=== PATIENT | male | born 1945 | race Two or more races ===

== ENCOUNTER 2018-01-24 15:59 | Emergency (ER) | payer MEDICARE, MEDICAID ==
[~2018-01-24] VITALS: Ht 172.7 cm; Wt 72.0 kg
[2018-01-24] MEDS ORDERED: CIPR10DR LEFT EAR (16:17)
[2018-01-24 16:26] VITALS: BP 117/65
[2018-01-25] MEDS ORDERED: [UNRECOGNIZED DRUG - OTHER] PO (15:32)
== END 2018-01-24 16:25 | disposition home or self-care (01) ==
LOC: ER 15:59
DX: H60.92 Unspecified otitis externa, left ear (principal); I50.9 Heart failure, unspecified
CPT/HCPCS: 99283

== ENCOUNTER 2018-01-25 14:44 | Emergency (ER) | payer MEDICARE, MEDICAID ==
[~2018-01-25] VITALS: Ht 172.7 cm; Wt 77.0 kg
[~2018-01-25 14:44] MED LIST: CIPR10DR LEFT EAR
[2018-01-25] MEDS ORDERED: [UNRECOGNIZED DRUG - OTHER] PO (15:32)
[2018-01-25 15:43] VITALS: BP 114/64
== END 2018-01-25 15:44 | disposition home or self-care (01) ==
LOC: ER 14:46
DX: H60.92 Unspecified otitis externa, left ear (principal); I50.9 Heart failure, unspecified
CPT/HCPCS: 99284

== ENCOUNTER 2018-02-15 14:56 | Inpatient (IN) | payer MEDICARE, MEDICAID ==
[~2018-02-15] VITALS: Ht 165.1 cm; Wt 63.0 kg
[~2018-02-15 14:56] MED LIST changes: -CIPR10DR LEFT EAR; +[UNRECOGNIZED DRUG - OTHER] PO
[2018-02-15 15:27] LABS: BASOPHILS # (AUTO) 0.1 X10'3 (0-0.2); BASOPHILS % (AUTO) 0.9 % (0-1); EOSINOPHILS # (AUTO) 0.2 X10'3 (0-0.9); EOSINOPHILS % (AUTO) 2.2 % (0-6); HEMATOCRIT 39.4 % (42.0-52.0); HEMOGLOBIN 13.3 g/dl (14.0-17.9); LYMPHOCYTES # (AUTO) 1.9 X10'3 (1.1-4.8); LYMPHOCYTES % (AUTO) 22.3 % (21-51); MEAN CORPUSCULAR HEMOGLOBIN 31.2 PG (27.0-31.0); MEAN CORPUSCULAR HGB CONC 33.8 % (33.0-36.5); MEAN CORPUSCULAR VOLUME 92.2 FL (78-98); MEAN PLATELET VOLUME 9.8 FL (7.4-10.4); MONOCYTES # (AUTO) 0.7 X10'3 (0-0.9); MONOCYTES % (AUTO) 8.4 % (2-12); NEUTROPHILS # (AUTO) 5.6 X10'3 (1.8-7.7); NEUTROPHILS % (AUTO) 66.2 % (42-75); PLATELET COUNT 158 X10'3 (140-440); RED BLOOD COUNT 4.27 X10'6 (4.70-6.10); RED CELL DISTRIBUTION WIDTH 13.6 % (11.5-14.5); WHITE BLOOD COUNT 8.5 X10'3 (4.5-11.0)
[2018-02-15 15:37] LABS: INR 1.1 INR; PARTIAL THROMBOPLASTIN TIME 27 SECONDS (22-32); PROTHROMBIN TIME 11.2 SECONDS (9.0-12.0)
[2018-02-15 15:49] LABS: ALANINE AMINOTRANSFERASE 41 U/L (12-78); ALBUMIN 3.5 G/DL (3.4-5.0); ALBUMIN/GLOBULIN RATIO 0.9 (1.1-1.5); ALKALINE PHOSPHATASE 73 IU/L (46-116); ANION GAP 9 (8-16); ASPARTATE AMINO TRANSFERASE 45 U/L (10-37); BILIRUBIN,TOTAL 1.4 MG/DL (0.1-1.0); BLOOD UREA NITROGEN 31 MG/DL (7-18); BUN/CREATININE RATIO 20.4 (5.4-32.0); CALCIUM 9.4 MG/DL (8.5-10.1); CHLORIDE 98 MMOL/L (99-107); CREATININE 1.52 MG/DL (0.60-1.10); GLUCOSE 87 MG/DL (70-104); POTASSIUM 3.7 MMOL/L (3.5-5.1); SODIUM 138 MMOL/L (135-145); TOTAL CARBON DIOXIDE 30.6 MMOL/L (24-32); TOTAL PROTEIN 7.5 G/DL (6.4-8.2); eGFR 45 ML/MIN
[2018-02-15] MEDS ORDERED: morphine 4 MG/ML inj SYRINge IV PRN ×2 (17:55)
[2018-02-15] MEDS ORDERED: bisacodyl 10mg suppository rectal RC PRN (17:55)
[2018-02-15] MEDS ORDERED: magnesium 4gm in 100ml NS 100 ML IV PRN (17:55)
[2018-02-15] MEDS ORDERED: ondansetron/PF 4mg/2ml inj IV PRN (17:55)
[2018-02-15] MEDS ORDERED: acetaminophen 325mg tablet PO PRN (17:55)
[2018-02-15] MEDS ORDERED: magnesium Cl slow-release 64mg tablet PO PRN (17:55)
[2018-02-15] MEDS ORDERED: mag hydrox/Alum hydrox/simeth 30ml oral suspension PO PRN (17:55)
[2018-02-15] MEDS ORDERED: HYDROcodone/acetaminophen 5mg/325mg tablet PO PRN (17:55)
[2018-02-15] MEDS ORDERED: HYDROcodone/acetaminophen 10/325mg tab PO PRN (17:55)
[2018-02-15] MEDS ORDERED: magnesium hydroxide 30ml (MOM) UD suspension PO PRN (17:55)
[2018-02-15] MEDS ORDERED: potassium Cl 40MEQ/NS 500ml 500 ML IV PRN ×2 (17:55)
[2018-02-15] MEDS ORDERED: magnesium 2GM in 50ml NS 50 ML IV PRN (17:55)
[2018-02-15] MEDS ORDERED: potassium Cl 20 mEq SR tablet PO PRN ×2 (17:55)
[2018-02-15] MEDS ORDERED: SOTA80TA69 PO (18:02)
[2018-02-15] MEDS: aspirin 325mg tablet PO SCH (18:17)
[2018-02-15] MEDS: furosemide 40mg/4ml inj IV SCH ×2 (18:17→20:00)
[2018-02-15] MEDS: docusate sod 100mg capsule PO SCH (20:00)
[2018-02-15] MEDS ORDERED: sotalol 80mg tablet PO SCH (20:00)
[2018-02-15] MEDS: heparin, porcine 5000 units/ml vial SQ SCH (20:00)
[2018-02-15] MEDS: sotalol 80mg tablet PO SCH (20:00)
[2018-02-16 00:40] VITALS: BP 105/59
[2018-02-16 03:28] LABS: BASOPHILS % (AUTO) 0.8 % (0-1); EOSINOPHILS # (AUTO) 0.2 X10'3 (0-0.9); EOSINOPHILS % (AUTO) 3.2 % (0-6); HEMATOCRIT 36.5 % (42.0-52.0); HEMOGLOBIN 12.5 g/dl (14.0-17.9); LYMPHOCYTES # (AUTO) 1.2 X10'3 (1.1-4.8); LYMPHOCYTES % (AUTO) 19.2 % (21-51); MEAN CORPUSCULAR HEMOGLOBIN 31.4 PG (27.0-31.0); MEAN CORPUSCULAR HGB CONC 34.2 % (33.0-36.5); MEAN CORPUSCULAR VOLUME 91.8 FL (78-98); MEAN PLATELET VOLUME 9.4 FL (7.4-10.4); MONOCYTES # (AUTO) 0.6 X10'3 (0-0.9); NEUTROPHILS # (AUTO) 4.2 X10'3 (1.8-7.7); NEUTROPHILS % (AUTO) 66.8 % (42-75); PLATELET COUNT 142 X10'3 (140-440); RED BLOOD COUNT 3.98 X10'6 (4.70-6.10); RED CELL DISTRIBUTION WIDTH 14.3 % (11.5-14.5); WHITE BLOOD COUNT 6.3 X10'3 (4.5-11.0)
[2018-02-16 03:45] LABS: ALANINE AMINOTRANSFERASE 40 U/L (12-78); ALBUMIN 3.1 G/DL (3.4-5.0); ALBUMIN/GLOBULIN RATIO 0.8 (1.1-1.5); ALKALINE PHOSPHATASE 62 IU/L (46-116); ANION GAP 9 (8-16); ASPARTATE AMINO TRANSFERASE 38 U/L (10-37); BILIRUBIN,TOTAL 1.1 MG/DL (0.1-1.0); BLOOD UREA NITROGEN 32 MG/DL (7-18); CALCIUM 9.3 MG/DL (8.5-10.1); CHLORIDE 100 MMOL/L (99-107); CHOL/HDL RATIO 2.4 (0.00-4.99); CHOLESTEROL 141 MG/DL (0-200); GLUCOSE 102 MG/DL (70-104); HDL CHOLESTEROL 60 MG/DL (35-60); LDL CHOLESTEROL 71 MG/DL (50-100); POTASSIUM 3.9 MMOL/L (3.5-5.1); SODIUM 139 MMOL/L (135-145); TOTAL CARBON DIOXIDE 30.3 MMOL/L (24-32); TOTAL PROTEIN 6.8 G/DL (6.4-8.2); TRIGLYCERIDES 60 MG/DL (20-135); eGFR 43 ML/MIN
[2018-02-16 08:00] VITALS: BP 117/67
[2018-02-16] MEDS: furosemide 40mg/4ml inj IV SCH ×2 (08:00→19:40)
[2018-02-16] MEDS: docusate sod 100mg capsule PO SCH ×2 (08:00→19:39)
[2018-02-16] MEDS ORDERED: lisinopril 5mg tablet PO SCH (08:00)
[2018-02-16] MEDS: sotalol 80mg tablet PO SCH ×2 (08:00→19:41)
[2018-02-16] MEDS: heparin, porcine 5000 units/ml vial SQ SCH ×2 (08:00→19:41)
[2018-02-16] MEDS: K and/or MAG REPLACEMENT MC SCH (08:00)
[2018-02-16] MEDS: aspirin 325mg tablet PO SCH (08:30)
[2018-02-16 11:00] VITALS: BP 97/58
[2018-02-16] MEDS ORDERED: benzocaine/menthol oral lozeng 1 EACH BOX MM PRN (12:00)
[2018-02-16 20:00] VITALS: BP_SYST 102; BP_SYST 106; BP_SYST 108; BP_DIAS 53; BP_DIAS 54; BP_DIAS 57
[2018-02-16] MEDS ORDERED: tamsulosin 0.4mg capsule PO SCH (21:00)
[2018-02-17] VITALS: BP 104/63
[2018-02-17 06:19] LABS: ALANINE AMINOTRANSFERASE 41 U/L (12-78); ALBUMIN 3.4 G/DL (3.4-5.0); ALBUMIN/GLOBULIN RATIO 0.9 (1.1-1.5); ALKALINE PHOSPHATASE 66 IU/L (46-116); ANION GAP 8 (8-16); ASPARTATE AMINO TRANSFERASE 42 U/L (10-37); BILIRUBIN,TOTAL 1.4 MG/DL (0.1-1.0); BLOOD UREA NITROGEN 35 MG/DL (7-18); CALCIUM 9.5 MG/DL (8.5-10.1); CHLORIDE 99 MMOL/L (99-107); CREATININE 1.59 MG/DL (0.60-1.10); GLUCOSE 101 MG/DL (70-104); MAGNESIUM 2.1 MG/DL (1.5-2.4); POTASSIUM 3.9 MMOL/L (3.5-5.1); SODIUM 138 MMOL/L (135-145); TOTAL CARBON DIOXIDE 30.7 MMOL/L (24-32); TOTAL PROTEIN 7.2 G/DL (6.4-8.2); eGFR 43 ML/MIN
[2018-02-17 07:16] VITALS: BP 99/40
[2018-02-17] MEDS: K and/or MAG REPLACEMENT MC SCH (08:00)
[2018-02-17] MEDS: furosemide 40mg/4ml inj IV SCH (08:00)
[2018-02-17] MEDS: heparin, porcine 5000 units/ml vial SQ SCH (08:00)
[2018-02-17] MEDS: aspirin 325mg tablet PO SCH (09:35)
[2018-02-17] MEDS: docusate sod 100mg capsule PO SCH (09:35)
[2018-02-17] MEDS ORDERED: carvedilol 6.25mg tablet PO ONE (09:40)
[2018-02-17] MEDS ORDERED: LISI-600 PO (10:37)
[2018-02-17] MEDS ORDERED: CARV-50 PO (10:37)
[2018-02-17] MEDS ORDERED: DIGO125T78 PO (10:37)
[2018-02-17] MEDS ORDERED: SACU1TAB PO (10:37)
[2018-02-17] MEDS ORDERED: BUME2TAB3 PO (10:37)
[2018-02-17 11:00] VITALS: BP_SYST 104; BP_SYST 91; BP_DIAS 37; BP_DIAS 77
[2018-02-17] MEDS ORDERED: ASPI81TA52 PO (11:33)
[2018-02-17] MEDS ORDERED: TAMS0.4C32 PO (11:33)
[2018-02-17] MEDS ORDERED: sotalol 80mg tablet PO SCH (20:00)
[2018-02-18 09:18] LABS: % FREE PSA 10.4 % (.); PSA, FREE 0.27 ng/mL
== END 2018-02-17 13:08 | disposition home or self-care (01) | DRG 682 ==
LOC: ER 14:57 → ED HOLD 17:51 → EDBEDREQ 23:35 → MED 3N 02-16 00:37
PROVIDERS: ADMIT Internal Medicine; ATTEND Internal Medicine
DX: N17.9 Acute kidney failure, unspecified (principal); I50.23 Acute on chronic systolic (congestive) heart failure; I42.9 Cardiomyopathy, unspecified; I08.3 Combined rheumatic disorders of mitral, aortic and tricuspid valves; I73.9 Peripheral vascular disease, unspecified; G89.4 Chronic pain syndrome; R33.9 Retention of urine, unspecified; I25.10 Atherosclerotic heart disease of native coronary artery without angina pectoris; N18.9 Chronic kidney disease, unspecified; N40.0 Benign prostatic hyperplasia without lower urinary tract symptoms; Z96.643 Presence of artificial hip joint, bilateral; Z66 Do not resuscitate; Z79.82 Long term (current) use of aspirin; Z79.899 Other long term (current) drug therapy; Z87.891 Personal history of nicotine dependence
CPT/HCPCS: 36415; 71045; 80053; 80061; 80162; 83605; 83735; 83880; 84145; 84153; 84154; 84484; 85025; 85610; 85730; 87040; 87070; 93005; 93306; 93922; 93925; 99285; J1644; J1940

== ENCOUNTER 2019-10-09 11:08 | Emergency (ER) | payer MEDICARE ==
[~2019-10-09] VITALS: Ht 170.2 cm; Wt 73.6 kg
[~2019-10-09 11:08] MED LIST changes: +BUME2TAB7 PO; +CARV-50 PO; +DIGO125T78 PO; +SACU1TAB PO; +TAMS0.4C32 PO; -[UNRECOGNIZED DRUG - OTHER] PO
[2019-10-09] MEDS ORDERED: normal saline 1000ml 1,000 ML IV ONE (12:20)
[2019-10-09] MEDS ORDERED: METO5TAB7 (12:53)
[2019-10-09] MEDS ORDERED: LOSA50TA64 (12:53)
--- NOTE | 2019-10-09 12:57 | NUR ---
Pt stood at the bedside and used the urinal to void minimal, approximately 5-10ml of dark yellow urine. Pt reports "I am retaining urine."
--- NOTE | 2019-10-09 13:24 | NUR ---
Pt reports his nose is bleeding again. Pt noted to have bright red blood on tissue at bedside. Asked the patient not to blow his nose. Provider aware of the bleeding at this time.
[2019-10-09 14:02] VITALS: BP 84/46
== END 2019-10-09 14:15 | disposition home or self-care (01) ==
LOC: ER 11:08
DX: R04.0 Epistaxis (principal); R06.7 Sneezing; I50.9 Heart failure, unspecified; Z98.890 Other specified postprocedural states; Z88.8 Allergy status to other drugs, medicaments and biological substances; Z79.899 Other long term (current) drug therapy
CPT/HCPCS: 93005; 99284; J7030

== ENCOUNTER 2019-10-28 10:25 | Inpatient (IN) | payer MEDICARE, OTHER ==
[~2019-10-28] VITALS: Ht 170.2 cm; Wt 74.5 kg
[~2019-10-28 10:25] MED LIST changes: -DIGO125T78 PO; +LOSA50TA64 PO; +METO5TAB7 PO; -SACU1TAB PO; -TAMS0.4C32 PO
[2019-10-28 11:29] LABS: BASOPHILS % (AUTO) 0.5 % (0-1); EOSINOPHILS % (AUTO) 0.8 % (0-6); HEMATOCRIT 34.1 % (42.0-52.0); HEMOGLOBIN 11.7 g/dl (14.0-17.9); LYMPHOCYTES # (AUTO) 0.7 X10'3 (1.1-4.8); LYMPHOCYTES % (AUTO) 13.7 % (21-51); MEAN CORPUSCULAR HEMOGLOBIN 30.9 PG (27.0-31.0); MEAN CORPUSCULAR HGB CONC 34.4 g/dL (33.0-36.5); MEAN CORPUSCULAR VOLUME 89.9 FL (78-98); MEAN PLATELET VOLUME 11.4 FL (7.4-10.4); MONOCYTES # (AUTO) 0.7 X10'3 (0-0.9); MONOCYTES % (AUTO) 12.5 % (2-12); NEUTROPHILS % (AUTO) 72.5 % (42-75); PLATELET COUNT 106 X10'3 (140-440); RED BLOOD COUNT 3.79 X10'6 (4.70-6.10); RED CELL DISTRIBUTION WIDTH 14.2 % (11.5-14.5); WHITE BLOOD COUNT 5.5 X10'3 (4.5-11.0)
[2019-10-28] MEDS ORDERED: morphine 2 MG/ML inj. syringe IV ONE (11:40)
[2019-10-28] MEDS ORDERED: normal saline 1000ML IV soln IVB ONE ×2 (11:40→12:05)
[2019-10-28] MEDS ORDERED: ondansetron/PF 4mg/2ml inj IV ONE (11:40)
[2019-10-28 11:47] LABS: ALANINE AMINOTRANSFERASE 20 U/L (12-78); ALBUMIN 3.3 G/DL (3.4-5.0); ALBUMIN/GLOBULIN RATIO 0.9 (1.1-1.5); ALKALINE PHOSPHATASE 35 IU/L (46-116); ANION GAP 13 (8-16); ASPARTATE AMINO TRANSFERASE 33 U/L (10-37); BILIRUBIN,TOTAL 1.1 MG/DL (0.1-1.0); BUN/CREATININE RATIO 39.4 (5.4-32.0); CALCIUM 9.3 MG/DL (8.5-10.1); CHLORIDE 86 MMOL/L (99-107); CREATININE 4.31 MG/DL (0.60-1.10); GLUCOSE 110 MG/DL (70-104); POTASSIUM 3.6 MMOL/L (3.5-5.1); SODIUM 127 MMOL/L (135-145); TOTAL CARBON DIOXIDE 28.3 MMOL/L (24-32); TOTAL PROTEIN 7.1 G/DL (6.4-8.2); eGFR 14 ML/MIN
[2019-10-28 11:48] LABS: BLOOD UREA NITROGEN 170 MG/DL (7-18)
[2019-10-28 12:02] LABS: LARGE PLATELETS FEW; PLATELET ESTIMATE DECREASED
--- NOTE | 2019-10-28 12:04 | NUR ---
received a verbal order from Rodríguez PA to only admin 0.5mg of morphine,wasted 1.5mg of morphine,alan KRUEGER witnessed.
--- NOTE | 2019-10-28 12:05 | NUR ---
BP on low side Rodríguez PA aware.
--- NOTE | 2019-10-28 12:26 | NUR ---
SPOKE WITH ASHTYN JOHNSON REGARDING ORDER FOR 1 LITER OF NS WITH A BNP OVER 26,000 AND A TROPONIN OF 0.18. NO ORDER FOR ASPIRIN. ASHTYN WANTS 1 LITER NS GIVEN
--- NOTE | 2019-10-28 13:00 | NUR ---
technical applications specialist at bedside.
[2019-10-28] MEDS ORDERED: CARV6.253 PO (13:37)
[2019-10-28] MEDS ORDERED: BUME1TAB8 PO (13:37)
[2019-10-28] MEDS ORDERED: normal saline 1000ml 1,000 ML IV SCH (14:12)
--- NOTE | 2019-10-28 14:12 | NUR ---
LON Hare AT BEDSIDE.
[2019-10-28] MEDS ORDERED: ondansetron/PF 4mg/2ml inj IV PRN (14:15)
[2019-10-28] MEDS ORDERED: mag hydrox/Alum hydrox/simeth 30ml oral suspension PO PRN (14:15)
[2019-10-28] MEDS ORDERED: magnesium hydroxide 30ml (MOM) UD suspension PO PRN (14:15)
[2019-10-28] MEDS ORDERED: acetaminophen 325mg tablet PO PRN (14:15)
--- NOTE | 2019-10-28 14:15 | NUR ---
Dr. Astorga made aware about patient's bp on low side sbp 70's,Md said patient is chronic hypotensive.
[2019-10-28] MEDS ORDERED: milrinone (Primacor) 20mg/D5W 100 ML IV SCH (14:30)
[2019-10-28 15:50] VITALS: BP 84/53
--- NOTE | 2019-10-28 17:02 | NUR ---
Paged Dr. Astorga re patients pain level PAGER ID: [phone] MESSAGE: [phone] Mauricio Hughes. C/O 8/10 pain in arm and hips, no pains med orders, please advise, thanks! Essie KRUEGER [phone]
[2019-10-28 18:00] VITALS: BP 70/52
--- NOTE | 2019-10-28 18:00 | NUR ---
Patient in room PCU 3014. I have received report from JACKSON KRUEGER and had the opportunity to ask questions and assume patient care.
--- NOTE | 2019-10-28 18:25 | NUR ---
Problems reprioritized. Patient report given, questions answered & plan of care reviewed with RN.
--- NOTE | 2019-10-28 18:41 | NUR ---
[place] Medication Administration: For this medication-pass time frame, all medication were reviewed, dispensed, administered and documented per hospital policy by EVANS Cruz.
--- NOTE | 2019-10-28 18:41 | NUR ---
[place] documentation: I have reviewed and agree with all interventions, assessments performed and documented by EVANS Cruz.
[2019-10-28] MEDS: DOBUTamine-DoBUTrex 500mg/D5W 250 ML IV SCH (19:07)
[2019-10-28] MEDS: carvedilol 6.25mg tablet PO SCH (19:53)
[2019-10-28] MEDS: heparin, porcine 5000 units/ml vial SQ SCH (19:54)
[2019-10-28] MEDS: furosemide 40mg/4ml inj IV SCH (19:54)
[2019-10-28 20:00] VITALS: BP 76/62
--- NOTE | 2019-10-28 20:43 | NUR ---
PATIENT HAVING MULTIFOCAL PVCS PER TELE MONITOR PRIOR TO INSERTION OF PICC LINE, DURING INSERTION NON-SUSTAINED RUNS OF V-TACH WERE NOTED ON PICC ULTRASOUND MACHINE. PICC LINE WAS LEFT AT 7CM OUT DUE TO THE RHYTHM CHANGES. INFORMED CHARGE NURSE, DAYSHIJAKE RN, NIGHTSHIFT RN, [facility], AND RESOURCE RN OF CHANGES IN RHYTHM NOTED DURING INSERTION. ALL STATE UNDERSTANDING. CHEST X-RAY SENT TO [facility] [facility] FOR OFFICIALLY READING. Addendum: 10/28/19 at 2047 by Tiffanie Cruz RN Amended: Links added.
[2019-10-28] MEDS: HYDROcodone/acetaminophen 5mg/325mg tablet PO PRN (21:47)
[2019-10-28 22:00] VITALS: BP 85/61
--- NOTE | 2019-10-28 22:50 | NUR ---
tropnin level 0.15, called to Cristiane
[2019-10-29] VITALS (9 sets, daily range): BP systolic 80–130; BP diastolic 44–78
[2019-10-29] MEDS: HYDROcodone/acetaminophen 5mg/325mg tablet PO PRN ×3 (04:00→17:25)
[2019-10-29 05:46] LABS: BASOPHILS % (AUTO) 0.6 % (0-1); EOSINOPHILS % (AUTO) 0.8 % (0-6); HEMATOCRIT 29.8 % (42.0-52.0); HEMOGLOBIN 10.2 g/dl (14.0-17.9); LYMPHOCYTES # (AUTO) 0.7 X10'3 (1.1-4.8); LYMPHOCYTES % (AUTO) 14.7 % (21-51); MEAN CORPUSCULAR HEMOGLOBIN 31.2 PG (27.0-31.0); MEAN CORPUSCULAR HGB CONC 34.3 g/dL (33.0-36.5); MEAN CORPUSCULAR VOLUME 90.8 FL (78-98); MEAN PLATELET VOLUME 11.1 FL (7.4-10.4); MONOCYTES # (AUTO) 0.7 X10'3 (0-0.9); MONOCYTES % (AUTO) 14.4 % (2-12); NEUTROPHILS # (AUTO) 3.4 X10'3 (1.8-7.7); NEUTROPHILS % (AUTO) 69.5 % (42-75); PLATELET COUNT 89 X10'3 (140-440); RED BLOOD COUNT 3.28 X10'6 (4.70-6.10); RED CELL DISTRIBUTION WIDTH 14.3 % (11.5-14.5); WHITE BLOOD COUNT 4.9 X10'3 (4.5-11.0)
[2019-10-29 05:54] LABS: ALBUMIN 3.2 G/DL (3.4-5.0); ANION GAP 11 (8-16); CALCIUM 9.1 MG/DL (8.5-10.1); CHLORIDE 92 MMOL/L (99-107); CREATININE 3.33 MG/DL (0.60-1.10); GLUCOSE 107 MG/DL (70-104); SODIUM 132 MMOL/L (135-145); TOTAL CARBON DIOXIDE 28.6 MMOL/L (24-32); eGFR 18 ML/MIN
[2019-10-29 05:56] LABS: BLOOD UREA NITROGEN 158 MG/DL (7-18); BUN/CREATININE RATIO 47.4 (5.4-32.0)
[2019-10-29 05:59] LABS: POTASSIUM 2.7 MMOL/L (3.5-5.1)
--- NOTE | 2019-10-29 06:02 | NUR ---
CRITICAL VALUE POTASSIUM 2.7, CALLED TO LORENA, PROTOCOL STARTED
[2019-10-29] MEDS ORDERED: potassium Cl 20 mEq SR tablet PO PRN ×2 (06:05→06:10)
[2019-10-29] MEDS ORDERED: magnesium 4gm in 100ml NS 100 ML IV PRN (06:10)
[2019-10-29] MEDS ORDERED: magnesium 2GM in 50ml NS 50 ML IV PRN (06:10)
[2019-10-29] MEDS ORDERED: potassium Cl 20mEq/100mL bag 100 ML IV PRN (06:10)
--- NOTE | 2019-10-29 06:22 | NUR ---
Problems reprioritized. Patient report given, questions answered & plan of care reviewed with EVANS Rodriguez. Addendum: 10/29/19 at 0623 by Charly Thomas RN Correction: I received report
--- NOTE | 2019-10-29 06:29 | NUR ---
Problems reprioritized. Patient report given, questions answered & plan of care reviewed with JACKSON KRUEGER.
[2019-10-29] MEDS: K and/or MAG REPLACEMENT MC SCH (06:57)
--- NOTE | 2019-10-29 07:27 | NUR ---
Problems reprioritized. Patient report given, questions answered & plan of care reviewed with EVANS Schuler.
--- NOTE | 2019-10-29 07:37 | NUR ---
Patient in room PCU 3014. I have received report from EVANS Parks and had the opportunity to ask questions and assume patient care.
[2019-10-29] MEDS: carvedilol 6.25mg tablet PO SCH (08:24)
[2019-10-29] MEDS: furosemide 40mg/4ml inj IV SCH ×2 (08:24→20:00)
[2019-10-29] MEDS: heparin, porcine 5000 units/ml vial SQ SCH ×2 (08:24→20:31)
[2019-10-29] MEDS: carVEDilol 3.125mg tablet PO SCH ×2 (10:40→20:31)
[2019-10-29] MEDS: potassium Cl 20 mEq SR tablet PO PRN ×2 (12:32→17:25)
[2019-10-29] MEDS: gabapentin 100mg capsule PO SCH ×2 (12:34→17:26)
[2019-10-29] MEDS: DOBUTamine-DoBUTrex 500mg/D5W 250 ML IV SCH (17:24)
--- NOTE | 2019-10-29 18:30 | NUR ---
Patient in room PCU 3026. I have received report from Harini KRUEGER and had the opportunity to ask questions and assume patient care.
--- NOTE | 2019-10-29 18:48 | NUR ---
Problems reprioritized. Patient report given, questions answered & plan of care reviewed with Ron RN.
--- NOTE | 2019-10-29 20:32 | NUR ---
LASIX HELD per orders held due to low SBP <100 BP 99/82
[2019-10-30] VITALS (9 sets, daily range): BP systolic 76–118; BP diastolic 45–62
[2019-10-30 03:54] LABS: ALBUMIN 3.2 G/DL (3.4-5.0); ANION GAP 9 (8-16); BASOPHILS % (AUTO) 0.7 % (0-1); CALCIUM 9.5 MG/DL (8.5-10.1); CHLORIDE 94 MMOL/L (99-107); CREATININE 2.41 MG/DL (0.60-1.10); GLUCOSE 117 MG/DL (70-104); HEMATOCRIT 29.6 % (42.0-52.0); HEMOGLOBIN 10.2 g/dl (14.0-17.9); LYMPHOCYTES # (AUTO) 0.8 X10'3 (1.1-4.8); LYMPHOCYTES % (AUTO) 16.9 % (21-51); MAGNESIUM 2.2 MG/DL (1.5-2.4); MEAN CORPUSCULAR HEMOGLOBIN 31.3 PG (27.0-31.0); MEAN CORPUSCULAR HGB CONC 34.5 g/dL (33.0-36.5); MEAN CORPUSCULAR VOLUME 90.7 FL (78-98); MEAN PLATELET VOLUME 10.8 FL (7.4-10.4); MONOCYTES # (AUTO) 0.7 X10'3 (0-0.9); MONOCYTES % (AUTO) 14.8 % (2-12); NEUTROPHILS % (AUTO) 66.6 % (42-75); PLATELET COUNT 89 X10'3 (140-440); POTASSIUM 3.2 MMOL/L (3.5-5.1); RED BLOOD COUNT 3.27 X10'6 (4.70-6.10); RED CELL DISTRIBUTION WIDTH 13.8 % (11.5-14.5); SODIUM 134 MMOL/L (135-145); WHITE BLOOD COUNT 4.5 X10'3 (4.5-11.0); eGFR 27 ML/MIN
[2019-10-30 04:03] LABS: BLOOD UREA NITROGEN 129 MG/DL (7-18); BUN/CREATININE RATIO 53.5 (5.4-32.0)
[2019-10-30] MEDS: potassium Cl 20 mEq SR tablet PO PRN ×3 (05:01→13:51)
--- NOTE | 2019-10-30 06:27 | NUR ---
Patient in room PCU 3026. I have received report from EVANS Velasquez and had the opportunity to ask questions and assume patient care.
--- NOTE | 2019-10-30 06:27 | NUR ---
Patient in room PCU 3026. I have received report from Ron RN and had the opportunity to ask questions and assume patient care. Patient asleep in bed. Dobutamine gtt @ 5 mcg/kg/min. All immediate needs met at this time.
--- NOTE | 2019-10-30 06:37 | NUR ---
Problems reprioritized. Patient report given, questions answered & plan of care reviewed with Kayy KRUEGER.
[2019-10-30] MEDS: carVEDilol 3.125mg tablet PO SCH ×2 (07:39→21:08)
[2019-10-30] MEDS: furosemide 40mg/4ml inj IV SCH ×2 (07:46→21:08)
[2019-10-30] MEDS: K and/or MAG REPLACEMENT MC SCH (07:47)
[2019-10-30] MEDS: heparin, porcine 5000 units/ml vial SQ SCH ×2 (08:00→20:00)
--- NOTE | 2019-10-30 09:36 | NUR ---
Pt is persistant in getting up from his recliner chair. Educated and instructed patient to not get up, and if he does, to ask for assistance since SBP is in the 80s
[2019-10-30] MEDS: DOBUTamine-DoBUTrex 500mg/D5W 250 ML IV SCH ×2 (10:13→21:37)
--- NOTE | 2019-10-30 10:20 | NUR ---
New orders per Porsha Morales: Discontinue milk of magnesia. Order for lactulose 20 gm once daily for constipation.
[2019-10-30] MEDS: lactulose 20gm/30ml cup PO SCH (10:27)
[2019-10-30] MEDS ORDERED: traMADol 50MG tablet PO PRN (11:25)
[2019-10-30] MEDS: cephalexin 500mg capsule PO SCH ×2 (12:04→21:04)
[2019-10-30] MEDS: gabapentin 100mg capsule PO SCH ×2 (12:04→17:37)
--- NOTE | 2019-10-30 17:49 | NUR ---
Paged Dr. Bliss regarding pts increase HR PAGER ID: [phone] MESSAGE: [phone]: Salomon Chin: Pts HR has been trending in the 110's within the past hour. Thank you! - Gayle [phone]
--- NOTE | 2019-10-30 18:36 | NUR ---
Problems reprioritized. Patient report given, questions answered & plan of care reviewed with Erika KRUEGER. Patient stable at transfer of care.
--- NOTE | 2019-10-30 18:37 | NUR ---
Patient in room PCU 3026. I have received report from Kayy Christine and had the opportunity to ask questions and assume patient care. upon shift change pt sitting in chair. Dobutamine drip at 3 mcg, BP 91/53, recheck,105/59 hr 110 non sustained, fall precaution implemented, education provided for fall risk, pt request door close, light off. charge weigher aware. will continue to monitor frequently.
--- NOTE | 2019-10-30 18:38 | NUR ---
[place] documentation: I have reviewed and agree with all interventions, assessments performed and documented by Gayle KRUEGER. [place] Medication Administration: For this medication-pass time frame, all medication were reviewed, dispensed, administered and documented per hospital policy by Gayle KRUEGER.
--- NOTE | 2019-10-30 20:59 | NUR ---
platelets are 89, ok to hold heparin tonight per Yuri Hagan
[2019-10-31] VITALS (7 sets, daily range): BP systolic 89–104; BP diastolic 49–91
[2019-10-31 05:22] LABS: BASOPHILS % (AUTO) 0.5 % (0-1); EOSINOPHILS # (AUTO) 0.1 X10'3 (0-0.9); EOSINOPHILS % (AUTO) 1.1 % (0-6); HEMATOCRIT 31.6 % (42.0-52.0); HEMOGLOBIN 10.7 g/dl (14.0-17.9); LYMPHOCYTES # (AUTO) 0.7 X10'3 (1.1-4.8); LYMPHOCYTES % (AUTO) 14.3 % (21-51); MEAN CORPUSCULAR HGB CONC 33.7 g/dL (33.0-36.5); MEAN PLATELET VOLUME 10.9 FL (7.4-10.4); MONOCYTES # (AUTO) 0.6 X10'3 (0-0.9); MONOCYTES % (AUTO) 12.6 % (2-12); NEUTROPHILS # (AUTO) 3.4 X10'3 (1.8-7.7); NEUTROPHILS % (AUTO) 71.5 % (42-75); PLATELET COUNT 86 X10'3 (140-440); RED BLOOD COUNT 3.43 X10'6 (4.70-6.10); RED CELL DISTRIBUTION WIDTH 14.1 % (11.5-14.5); WHITE BLOOD COUNT 4.8 X10'3 (4.5-11.0)
[2019-10-31 05:44] LABS: ALBUMIN 3.2 G/DL (3.4-5.0); ANION GAP 7 (8-16); BLOOD UREA NITROGEN 119 MG/DL (7-18); BUN/CREATININE RATIO 52.2 (5.4-32.0); CALCIUM 9.1 MG/DL (8.5-10.1); CHLORIDE 95 MMOL/L (99-107); CREATININE 2.28 MG/DL (0.60-1.10); GLUCOSE 123 MG/DL (70-104); MAGNESIUM 2.6 MG/DL (1.5-2.4); POTASSIUM 3.7 MMOL/L (3.5-5.1); SODIUM 134 MMOL/L (135-145); TOTAL CARBON DIOXIDE 32.2 MMOL/L (24-32); eGFR 28 ML/MIN
--- NOTE | 2019-10-31 06:10 | NUR ---
Problems reprioritized. Patient report given, questions answered & plan of care reviewed with Kayy KRUEGER, bedside report completed. no distress noted. pt asleep in bed.
--- NOTE | 2019-10-31 06:35 | NUR ---
Patient in room PCU 3026. I have received report from Erika KRUEGER and had the opportunity to ask questions and assume patient care. Patient awake in bed and resting. No complaints at this time. All immediate needs met.
[2019-10-31] MEDS: lactulose 20gm/30ml cup PO SCH (07:58)
[2019-10-31] MEDS: carVEDilol 3.125mg tablet PO SCH ×2 (07:59→20:00)
[2019-10-31] MEDS: cephalexin 500mg capsule PO SCH ×2 (07:59→19:58)
[2019-10-31] MEDS: heparin, porcine 5000 units/ml vial SQ SCH ×2 (08:00→20:00)
[2019-10-31] MEDS: K and/or MAG REPLACEMENT MC SCH (08:00)
--- NOTE | 2019-10-31 08:12 | NUR ---
Spoke with Dr Sommer regarding picc line placement from Thursday. Per Dr Sommer picc placement is optimal ending near cavoatrial junction. BEA KRUEGER
[2019-10-31] MEDS: furosemide 40mg/4ml inj IV SCH ×2 (09:58→20:00)
[2019-10-31] MEDS: potassium Cl 20 mEq SR tablet PO PRN ×2 (09:58→17:41)
[2019-10-31] MEDS: gabapentin 100mg capsule PO SCH ×2 (13:18→17:42)
--- NOTE | 2019-10-31 18:57 | NUR ---
Patient in room PCU 3026. I have received report from Kayy KRUEGER and had the opportunity to ask questions and assume patient care.
--- NOTE | 2019-10-31 18:57 | NUR ---
Problems reprioritized. Patient report given, questions answered & plan of care reviewed with Erica KRUEGER. Patient stable at transfer of care.
[2019-11-01] VITALS (8 sets, daily range): BP systolic 85–94; BP diastolic 52–72
[2019-11-01 05:11] LABS: BASOPHILS % (AUTO) 0.6 % (0-1); EOSINOPHILS % (AUTO) 0.8 % (0-6); HEMATOCRIT 31.5 % (42.0-52.0); HEMOGLOBIN 10.7 g/dl (14.0-17.9); LYMPHOCYTES # (AUTO) 0.8 X10'3 (1.1-4.8); LYMPHOCYTES % (AUTO) 12.2 % (21-51); MEAN CORPUSCULAR HEMOGLOBIN 30.8 PG (27.0-31.0); MEAN CORPUSCULAR HGB CONC 33.9 g/dL (33.0-36.5); MEAN CORPUSCULAR VOLUME 90.9 FL (78-98); MEAN PLATELET VOLUME 10.8 FL (7.4-10.4); MONOCYTES # (AUTO) 0.7 X10'3 (0-0.9); MONOCYTES % (AUTO) 11.6 % (2-12); NEUTROPHILS # (AUTO) 4.8 X10'3 (1.8-7.7); NEUTROPHILS % (AUTO) 74.8 % (42-75); PLATELET COUNT 85 X10'3 (140-440); RED BLOOD COUNT 3.46 X10'6 (4.70-6.10); WHITE BLOOD COUNT 6.4 X10'3 (4.5-11.0)
[2019-11-01 05:36] LABS: ALBUMIN 3.2 G/DL (3.4-5.0); ANION GAP 8 (8-16); BLOOD UREA NITROGEN 107 MG/DL (7-18); CALCIUM 9.4 MG/DL (8.5-10.1); CHLORIDE 95 MMOL/L (99-107); CREATININE 2.02 MG/DL (0.60-1.10); GLUCOSE 111 MG/DL (70-104); MAGNESIUM 2.5 MG/DL (1.5-2.4); POTASSIUM 4.2 MMOL/L (3.5-5.1); SODIUM 133 MMOL/L (135-145); TOTAL CARBON DIOXIDE 30.5 MMOL/L (24-32); eGFR 33 ML/MIN
--- NOTE | 2019-11-01 06:00 | NUR ---
Patient in room PCU 3026. I have received report from EVANS Maldonado and had the opportunity to ask questions and assume patient care.
--- NOTE | 2019-11-01 06:07 | NUR ---
Problems reprioritized. Patient report given, questions answered & plan of care reviewed with Kayy KRUEGER.
--- NOTE | 2019-11-01 06:30 | NUR ---
Patient in room PCU 3026. I have received report from EVANS Maldonado and had the opportunity to ask questions and assume patient care. Patient asleep and resting comfortably. In no acute distress. Will continue to monitor.
[2019-11-01] MEDS: cephalexin 500mg capsule PO SCH ×2 (07:21→19:31)
[2019-11-01] MEDS: carVEDilol 3.125mg tablet PO SCH ×2 (07:22→19:31)
[2019-11-01] MEDS: lactulose 20gm/30ml cup PO SCH (07:22)
[2019-11-01] MEDS: furosemide 40mg/4ml inj IV SCH ×2 (07:22→11:52)
[2019-11-01] MEDS: heparin, porcine 5000 units/ml vial SQ SCH ×2 (07:22→19:43)
[2019-11-01] MEDS: DOBUTamine-DoBUTrex 500mg/D5W 250 ML IV SCH ×2 (11:45→11:59)
[2019-11-01] MEDS: gabapentin 100mg capsule PO SCH ×2 (11:50→17:23)
--- NOTE | 2019-11-01 12:20 | NUR ---
New order from Dr. Shearer. Dobutamine gtt @ 1.5 mcg/kg/min. Discontinue gtt @ 1600.
--- NOTE | 2019-11-01 16:54 | NUR ---
Spoke to Dr. Shearer regarding pts discharge status. Pts blood pressure at 1645 was 82/60. Dr. Shearer stated to not to continue the dobutamine drip and monitor patient over night
--- NOTE | 2019-11-01 16:56 | NUR ---
PAGER ID: [phone] MESSAGE: RE: Salomon Chin [id number]. JING. Spoke with Dr. Shearer and he is not discharging patient today as he would like to monitor BP at this time.
--- NOTE | 2019-11-01 18:26 | NUR ---
Problems reprioritized. Patient report given, questions answered & plan of care reviewed with EVANS Maldonado.
--- NOTE | 2019-11-01 18:29 | NUR ---
Patient in room PCU 3026. I have received report from Kayy KRUEGER and had the opportunity to ask questions and assume patient care.
--- NOTE | 2019-11-01 18:53 | NUR ---
[place] documentation: I have reviewed and agree with all interventions, assessments performed and documented by EVANS Araujo. [place] Medication Administration: For this medication-pass time frame, all medication were reviewed, dispensed, administered and documented per hospital policy by EVANS Araujo.
--- NOTE | 2019-11-01 18:55 | NUR ---
Problems reprioritized. Patient report given, questions answered & plan of care reviewed with EVANS Maldonado. Patient stable at transfer of care.
[2019-11-01] MEDS: lactobacillus rhamnosus 10,000 MMU CELLS/CAPSULE PO SCH (19:31)
[2019-11-02 02:00] VITALS: BP 81/56
[2019-11-02 05:57] LABS: ALBUMIN 3.3 G/DL (3.4-5.0); ANION GAP 11 (8-16); BLOOD UREA NITROGEN 108 MG/DL (7-18); BUN/CREATININE RATIO 40.9 (5.4-32.0); CALCIUM 9.3 MG/DL (8.5-10.1); CHLORIDE 91 MMOL/L (99-107); CREATININE 2.64 MG/DL (0.60-1.10); GLUCOSE 101 MG/DL (70-104); MAGNESIUM 2.4 MG/DL (1.5-2.4); POTASSIUM 4.4 MMOL/L (3.5-5.1); SODIUM 130 MMOL/L (135-145); TOTAL CARBON DIOXIDE 28.3 MMOL/L (24-32); eGFR 24 ML/MIN
--- NOTE | 2019-11-02 06:22 | NUR ---
Problems reprioritized. Patient report given, questions answered & plan of care reviewed with Maricel KRUEGER.
[2019-11-02 07:21] VITALS: BP 151/111
[2019-11-02] MEDS: cephalexin 500mg capsule PO SCH (07:31)
[2019-11-02] MEDS: lactobacillus rhamnosus 10,000 MMU CELLS/CAPSULE PO SCH (07:31)
[2019-11-02] MEDS: carVEDilol 3.125mg tablet PO SCH (07:31)
[2019-11-02] MEDS: lactulose 20gm/30ml cup PO SCH (07:37)
[2019-11-02] MEDS: heparin, porcine 5000 units/ml vial SQ SCH (07:37)
[2019-11-02 07:46] LABS: BASOPHILS % (AUTO) 0.6 % (0-1); EOSINOPHILS % (AUTO) 0.6 % (0-6); HEMATOCRIT 32.4 % (42.0-52.0); HEMOGLOBIN 10.9 g/dl (14.0-17.9); LYMPHOCYTES # (AUTO) 0.9 X10'3 (1.1-4.8); LYMPHOCYTES % (AUTO) 12.7 % (21-51); MEAN CORPUSCULAR HEMOGLOBIN 31.1 PG (27.0-31.0); MEAN CORPUSCULAR HGB CONC 33.7 g/dL (33.0-36.5); MEAN CORPUSCULAR VOLUME 92.4 FL (78-98); MEAN PLATELET VOLUME 12.6 FL (7.4-10.4); MONOCYTES # (AUTO) 0.8 X10'3 (0-0.9); MONOCYTES % (AUTO) 10.5 % (2-12); NEUTROPHILS # (AUTO) 5.6 X10'3 (1.8-7.7); NEUTROPHILS % (AUTO) 75.6 % (42-75); PLATELET COUNT 91 X10'3 (140-440); RED CELL DISTRIBUTION WIDTH 14.5 % (11.5-14.5); WHITE BLOOD COUNT 7.4 X10'3 (4.5-11.0)
[2019-11-02 08:58] LABS: ELLIPTOCYTES FEW; PLATELET ESTIMATE DECREASED; SCHISTOCYTES FEW
[2019-11-02 08:59] LABS: BURR CELLS FEW
--- NOTE | 2019-11-02 10:57 | NUR ---
Initial: Pt admit with CHF exacerbation and cardiorenal syndrome. Renal function improving per MD notes. Pt on a renal diet documented with overall 75-100% meeting nutrient needs. LBM 10/31. Skin intact. No nutrition diagnosis at this time. Will continue to follow. Recommendations: 1) Continue with renal diet 2) Bowel care PRN 3) Wt per rx Addendum: 11/02/19 at [address] Amended: Links added.
[2019-11-02 12:27] VITALS: BP 90/57
[2019-11-02] MEDS ORDERED: COR3.125T PO (13:10)
--- NOTE | 2019-11-02 13:47 | NUR ---
Called new prescription to [facility] on [address] in [place] per pt preference.
[2019-11-02] MEDS: gabapentin 100mg capsule PO SCH (13:57)
--- NOTE | 2019-11-02 14:47 | NUR ---
received order for patient discharge to home. Educated patient on need to follow up within a week with both his primary provider and command post craftsman. Told him to call Dr. Shearer's office to get an appointment in November. Patient verbalized understanding of instructions and states he will call this afternoon to make appointments. Patient educated on discharge medication, as well as stopped medication. Patient verbalized understanding that he needs to stop taking his lasix until his command post craftsman restarts it or he sees Dr. Shearer. IV removed, catheter tip intact, hemostasis achieved, PICC line removed, catheter tip intact, hemostasis achieved, telemetry removed, wrist band removed. Patient contacted ride, will wait in lobby for his ride to arrive, approximately 15 minutes. Patient stable at time of discharge.
[2019-11-03] MEDS ORDERED: CARV3.122 PO (12:48)
== END 2019-11-02 14:30 | disposition home or self-care (01) | DRG 280 ==
LOC: ER 10:25 → ED HOLD 14:55 → PCU 3S 16:02
PROVIDERS: ADMIT Family Medicine; ATTEND Family Medicine
PROC: 02HV33Z Insertion of Infusion Device into Superior Vena Cava, Percutaneous Approach (ICD-10-PCS; principal; 2019-10-28)
PROC: B548ZZA Ultrasonography of Superior Vena Cava, Guidance (ICD-10-PCS; 2019-10-28)
DX: I13.0 Hypertensive heart and chronic kidney disease with heart failure and stage 1 through stage 4 chronic kidney disease, or unspecified chronic kidney disease (principal); I21.A1 Myocardial infarction type 2; I50.23 Acute on chronic systolic (congestive) heart failure; N17.9 Acute kidney failure, unspecified; E87.1 Hypo-osmolality and hyponatremia; J44.1 Chronic obstructive pulmonary disease with (acute) exacerbation; I42.9 Cardiomyopathy, unspecified; D64.9 Anemia, unspecified; E87.6 Hypokalemia; I08.0 Rheumatic disorders of both mitral and aortic valves; I27.20 Pulmonary hypertension, unspecified; I48.0 Paroxysmal atrial fibrillation; G54.2 Cervical root disorders, not elsewhere classified; Z60.2 Problems related to living alone; L08.9 Local infection of the skin and subcutaneous tissue, unspecified; M19.90 Unspecified osteoarthritis, unspecified site; Z96.643 Presence of artificial hip joint, bilateral; N18.3 Chronic kidney disease, stage 3 (moderate); T50.2X5A Adverse effect of carbonic-anhydrase inhibitors, benzothiadiazides and other diuretics, initial encounter; Z95.810 Presence of automatic (implantable) cardiac defibrillator; Z88.8 Allergy status to other drugs, medicaments and biological substances; Y92.89 Other specified places as the place of occurrence of the external cause; Z79.899 Other long term (current) drug therapy
CPT/HCPCS: 36415; 36569; 71045; 76937; 80048; 80053; 83735; 83880; 84484; 85025; 87081; 93005; 93306; 93931; 93971; 96361; 96374; 96375; 97112; 97116; 97530; 97535; 99285; G0378; J1250; J1644; J1940; J2260; J2270; J2405; J3475

== ENCOUNTER 2019-11-03 11:55 | Inpatient (IN) | payer MEDICARE, OTHER ==
[~2019-11-03] VITALS: Ht 170.2 cm; Wt 82.8 kg
[2019-11-03] VITALS (11 sets, daily range): BP systolic 63–159; BP diastolic 36–119
[~2019-11-03 11:55] MED LIST changes: +BUME1TAB8 PO; +CARV6.253 PO; +COR3.125T PO
[2019-11-03] MEDS ORDERED: normal saline 1000ML IV soln IV ONE (12:25)
[2019-11-03] MEDS ORDERED: CefTRIAXone 2gm/D5W 50ml 50 ML IV ONE (12:25)
[2019-11-03] MEDS ORDERED: CARV3.122 PO (12:48)
[2019-11-03 12:57] LABS: BASOPHILS % (AUTO) 0.5 % (0-1); EOSINOPHILS % (AUTO) 0.7 % (0-6); HEMATOCRIT 32.1 % (42.0-52.0); HEMOGLOBIN 10.9 g/dl (14.0-17.9); LYMPHOCYTES # (AUTO) 0.7 X10'3 (1.1-4.8); LYMPHOCYTES % (AUTO) 9.2 % (21-51); MEAN CORPUSCULAR HEMOGLOBIN 31.3 PG (27.0-31.0); MEAN CORPUSCULAR HGB CONC 34.1 g/dL (33.0-36.5); MEAN PLATELET VOLUME 11.7 FL (7.4-10.4); MONOCYTES # (AUTO) 0.7 X10'3 (0-0.9); MONOCYTES % (AUTO) 9.1 % (2-12); NEUTROPHILS # (AUTO) 5.9 X10'3 (1.8-7.7); NEUTROPHILS % (AUTO) 80.5 % (42-75); PLATELET COUNT 85 X10'3 (140-440); RED BLOOD COUNT 3.49 X10'6 (4.70-6.10); RED CELL DISTRIBUTION WIDTH 14.2 % (11.5-14.5); WHITE BLOOD COUNT 7.3 X10'3 (4.5-11.0)
[2019-11-03 13:20] LABS: CLARITY,URINE CLOUDY (Clear); COLOR,URINE YELLOW (Yellow); GLUCOSE, URINE NEGATIVE (Neg); KETONES,URINE NEGATIVE (Neg); LEUKOCYTE ESTERASE ,URINE NEGATIVE (Neg); NITRITES, URINE NEGATIVE (Neg); OCCULT BLOOD,URINE NEGATIVE (Neg); PH,URINE 5.5 (4.8-8.0); PROTEIN,URINE 100 mg/dl (Neg); UROBILINOGEN,URINE 0.2 E.U/dL (0.2-1.0)
[2019-11-03 13:24] LABS: LARGE PLATELETS FEW; PLATELET ESTIMATE DECREASED
[2019-11-03 13:26] LABS: UA COLLECTION TYPE FOLEY CATH
[2019-11-03 13:29] LABS: MUCUS STRANDS FEW /LPF (Neg); SQUAMOUS EPITHELIAL CELL,UR FEW /LPF (FEW)
[2019-11-03 13:31] LABS: RBC,URINE 0-2 /HPF (0-2); WBC,URINE 0-4 /HPF (0-4)
[2019-11-03 13:33] LABS: BACTERIA,URINE FEW /HPF (Neg)
[2019-11-03 13:35] LABS: AMORPHOUS URATES 2+; COARSE GRANULAR CAST 0-3 /LPF (NEGATIVE)
[2019-11-03 13:47] LABS: ALANINE AMINOTRANSFERASE 29 U/L (12-78); ALBUMIN 3.3 G/DL (3.4-5.0); ALKALINE PHOSPHATASE 40 IU/L (46-116); ANION GAP 15 (8-16); ASPARTATE AMINO TRANSFERASE 47 U/L (10-37); BILIRUBIN,TOTAL 1.9 MG/DL (0.1-1.0); BLOOD UREA NITROGEN 126 MG/DL (7-18); CALCIUM 9.3 MG/DL (8.5-10.1); CHLORIDE 86 MMOL/L (99-107); GLUCOSE 102 MG/DL (70-104); POTASSIUM 4.7 MMOL/L (3.5-5.1); SODIUM 123 MMOL/L (135-145); TOTAL CARBON DIOXIDE 22.2 MMOL/L (24-32); TOTAL PROTEIN 6.7 G/DL (6.4-8.2); eGFR 14 ML/MIN
[2019-11-03] MEDS ORDERED: magnesium 2GM in 50ml NS 50 ML IV PRN (14:20)
[2019-11-03] MEDS ORDERED: mag hydrox/Alum hydrox/simeth 30ml oral suspension PO PRN (14:20)
[2019-11-03] MEDS ORDERED: ondansetron/PF 4mg/2ml inj IV PRN (14:20)
[2019-11-03] MEDS ORDERED: magnesium hydroxide 30ml (MOM) UD suspension PO PRN (14:20)
[2019-11-03] MEDS ORDERED: magnesium 4gm in 100ml NS 100 ML IV PRN (14:20)
[2019-11-03] MEDS ORDERED: acetaminophen 325mg tablet PO PRN ×2 (14:20)
[2019-11-03] MEDS ORDERED: DOBUTamine-DoBUTrex 500mg/D5W 250 ML IV SCH (14:20)
[2019-11-03] MEDS ORDERED: diphenhydrAMINE 25mg capsule PO PRN (14:20)
[2019-11-03] MEDS ORDERED: potassium Cl 20 mEq SR tablet PO PRN ×2 (14:20)
[2019-11-03] MEDS ORDERED: potassium CL 10mEq/100ml bag 100 ML IV PRN ×2 (14:20)
[2019-11-03] MEDS ORDERED: bisacodyl 10mg suppository rectal RC PRN (14:20)
[2019-11-03] MEDS ORDERED: diphenhydrAMINE 50 mg/ml inj IV PRN (14:20)
[2019-11-03] MEDS ORDERED: magnesium Cl slow-release 64mg tablet PO PRN (14:20)
[2019-11-03] MEDS: normal saline 1000ml 1,000 ML IV SCH ×2 (15:46→23:37)
--- NOTE | 2019-11-03 18:00 | NUR ---
Patient in room PCU 3028. I have received report from Aquiles KRUEGER and had the opportunity to ask questions and assume patient care.
[2019-11-03] MEDS: K and/or MAG REPLACEMENT MC SCH (20:00)
--- NOTE | 2019-11-03 20:18 | NUR ---
paged Jaimie: PAGER ID: [phone] MESSAGE: [id number] Patient Zoey bp is 72/41, has been running low, CHF Pt and on 5 mcg dobutamine drip Rosario KRUEGER [id number] Jaimie ordered increase dobutamine to 10mcg
[2019-11-03] MEDS ORDERED: temazepam 15mg capsule PO PRN (21:00)
[2019-11-03] MEDS ORDERED: normal saline 1000ml 1,000 ML IV SCH (21:35)
[2019-11-04] VITALS (25 sets, daily range): BP systolic 58–102; BP diastolic 26–80
[2019-11-04] MEDS ORDERED: DOBUTamine-DoBUTrex 500mg/D5W 250 ML IV SCH ×3 (04:55→14:20)
--- NOTE | 2019-11-04 06:00 | NUR ---
Problems reprioritized. Patient report given, questions answered & plan of care reviewed with Lakshmi KRUEGER.
[2019-11-04 06:13] LABS: HEMATOCRIT 27.9 % (42.0-52.0); HEMOGLOBIN 9.4 g/dl (14.0-17.9); MEAN CORPUSCULAR HEMOGLOBIN 30.9 PG (27.0-31.0); MEAN CORPUSCULAR HGB CONC 33.9 g/dL (33.0-36.5); MEAN CORPUSCULAR VOLUME 91.3 FL (78-98); MEAN PLATELET VOLUME 11.3 FL (7.4-10.4); PLATELET COUNT 79 X10'3 (140-440); RED BLOOD COUNT 3.05 X10'6 (4.70-6.10); RED CELL DISTRIBUTION WIDTH 14.1 % (11.5-14.5); WHITE BLOOD COUNT 5.7 X10'3 (4.5-11.0)
[2019-11-04 06:28] LABS: ALANINE AMINOTRANSFERASE 29 U/L (12-78); ALBUMIN 2.7 G/DL (3.4-5.0); ALBUMIN/GLOBULIN RATIO 0.9 (1.1-1.5); ALKALINE PHOSPHATASE 32 IU/L (46-116); ANION GAP 11 (8-16); ASPARTATE AMINO TRANSFERASE 40 U/L (10-37); BILIRUBIN,TOTAL 1.5 MG/DL (0.1-1.0); BLOOD UREA NITROGEN 121 MG/DL (7-18); BUN/CREATININE RATIO 33.3 (5.4-32.0); CALCIUM 8.7 MG/DL (8.5-10.1); CHLORIDE 90 MMOL/L (99-107); CREATININE 3.63 MG/DL (0.60-1.10); GLUCOSE 101 MG/DL (70-104); MAGNESIUM 2.5 MG/DL (1.5-2.4); PHOSPHORUS 5.3 MG/DL (2.3-4.5); POTASSIUM 3.9 MMOL/L (3.5-5.1); SODIUM 125 MMOL/L (135-145); TOTAL CARBON DIOXIDE 23.7 MMOL/L (24-32); TOTAL PROTEIN 5.6 G/DL (6.4-8.2); eGFR 17 ML/MIN
--- NOTE | 2019-11-04 06:30 | NUR ---
Patient in room PCU 3028. I have received report from EVANS Brooks and had the opportunity to ask questions and assume patient care.
[2019-11-04] MEDS: K and/or MAG REPLACEMENT MC SCH ×2 (08:00→19:31)
[2019-11-04] MEDS: normal saline 1000ml 1,000 ML IV SCH ×2 (10:59→19:23)
--- NOTE | 2019-11-04 18:00 | NUR ---
Patient in room PCU 3028. I have received report from Harini KRUEGER, PCU and had the opportunity to ask questions and assume patient care.
--- NOTE | 2019-11-04 18:39 | NUR ---
Report given to EVANS Paez ACCE FREIGHT AGENT transported patient to the ACCE unit.
[2019-11-04] MEDS: DOBUTamine-DoBUTrex 500mg/D5W 250 ML IV SCH (19:23)
[2019-11-05] VITALS (12 sets, daily range): BP systolic 80–121; BP diastolic 35–101
[2019-11-05 01:54] LABS: HEMATOCRIT 30.1 % (42.0-52.0); HEMOGLOBIN 10.3 g/dl (14.0-17.9); MEAN CORPUSCULAR HEMOGLOBIN 31.1 PG (27.0-31.0); MEAN CORPUSCULAR HGB CONC 34.3 g/dL (33.0-36.5); MEAN CORPUSCULAR VOLUME 90.6 FL (78-98); MEAN PLATELET VOLUME 10.8 FL (7.4-10.4); PLATELET COUNT 87 X10'3 (140-440); RED BLOOD COUNT 3.32 X10'6 (4.70-6.10); WHITE BLOOD COUNT 6.2 X10'3 (4.5-11.0)
[2019-11-05 02:00] LABS: ALANINE AMINOTRANSFERASE 31 U/L (12-78); ALBUMIN 3.1 G/DL (3.4-5.0); ALKALINE PHOSPHATASE 34 IU/L (46-116); ANION GAP 11 (8-16); ASPARTATE AMINO TRANSFERASE 45 U/L (10-37); BILIRUBIN,TOTAL 1.3 MG/DL (0.1-1.0); BLOOD UREA NITROGEN 121 MG/DL (7-18); BUN/CREATININE RATIO 37.3 (5.4-32.0); CALCIUM 8.5 MG/DL (8.5-10.1); CHLORIDE 92 MMOL/L (99-107); CREATININE 3.24 MG/DL (0.60-1.10); GLUCOSE 101 MG/DL (70-104); MAGNESIUM 2.5 MG/DL (1.5-2.4); PHOSPHORUS 4.4 MG/DL (2.3-4.5); POTASSIUM 4.1 MMOL/L (3.5-5.1); SODIUM 125 MMOL/L (135-145); TOTAL CARBON DIOXIDE 22.4 MMOL/L (24-32); TOTAL PROTEIN 6.2 G/DL (6.4-8.2); eGFR 19 ML/MIN
--- NOTE | 2019-11-05 06:00 | NUR ---
6Patient in room MED 311. I have received report from EVANS Paez and had the opportunity to ask questions and assume patient care.
[2019-11-05] MEDS: normal saline 1000ml 1,000 ML IV SCH ×2 (06:20→16:27)
--- NOTE | 2019-11-05 06:24 | NUR ---
Problems reprioritized. Patient report given, questions answered & plan of care reviewed with EVANS FLOREZ.
[2019-11-05] MEDS: K and/or MAG REPLACEMENT MC SCH ×2 (08:00→19:29)
[2019-11-05] MEDS: DOBUTamine-DoBUTrex 500mg/D5W 250 ML IV SCH (10:00)
--- NOTE | 2019-11-05 18:00 | NUR ---
Problems reprioritized. Patient report given, questions answered & plan of care reviewed with EVANS Paez.
--- NOTE | 2019-11-05 18:27 | NUR ---
Patient in room MED 311. I have received report from Amaris KRUEGER and had the opportunity to ask questions and assume patient care.
[2019-11-05] MEDS: carVEDilol 3.125mg tablet PO SCH (19:28)
[2019-11-05] MEDS ORDERED: HYDROcodone/acetaminophen 10/325mg tab PO PRN (20:10)
[2019-11-05] MEDS ORDERED: furosemide 20 MG/2 ML vial IV ONE (20:15)
[2019-11-05] MEDS: HYDROcodone/acetaminophen 10/325mg tab PO PRN (20:26)
[2019-11-05] MEDS ORDERED: furosemide 20 MG/2 ML vial IV PRN (20:30)
[2019-11-06] VITALS (13 sets, daily range): BP systolic 79–99; BP diastolic 41–66
[2019-11-06] MEDS: DOBUTamine-DoBUTrex 500mg/D5W 250 ML IV SCH ×2 (01:28→16:04)
[2019-11-06] MEDS: HYDROcodone/acetaminophen 10/325mg tab PO PRN ×2 (01:38→15:19)
--- NOTE | 2019-11-06 01:47 | NUR ---
RECEIVED REPORT FROM TAD KRUEGER. ALL QUESTIONS ANSWERED. PATIENT IS RESTING IN THE RECLINER. NO NEEDS AT THIS TIME.
--- NOTE | 2019-11-06 04:00 | NUR ---
AGREE WITH PHYSICAL ASSESSMENT COMPLETED BY TAD KRUEGER.
--- NOTE | 2019-11-06 06:00 | NUR ---
Patient in room MED 311. I have received report from EVANS Morin and had the opportunity to ask questions and assume patient care.
--- NOTE | 2019-11-06 06:08 | NUR ---
REPORT GIVEN TO NIKITA KRUEGER. ALL QUESTIONS ANSWERED.
[2019-11-06 06:24] LABS: HEMATOCRIT 31.2 % (42.0-52.0); HEMOGLOBIN 10.4 g/dl (14.0-17.9); MEAN CORPUSCULAR HGB CONC 33.3 g/dL (33.0-36.5); MEAN CORPUSCULAR VOLUME 93.2 FL (78-98); MEAN PLATELET VOLUME 10.8 FL (7.4-10.4); PLATELET COUNT 101 X10'3 (140-440); RED BLOOD COUNT 3.35 X10'6 (4.70-6.10); RED CELL DISTRIBUTION WIDTH 14.5 % (11.5-14.5); WHITE BLOOD COUNT 5.5 X10'3 (4.5-11.0)
[2019-11-06 06:39] LABS: ALANINE AMINOTRANSFERASE 31 U/L (12-78); ALBUMIN 3.2 G/DL (3.4-5.0); ALBUMIN/GLOBULIN RATIO 0.9 (1.1-1.5); ALKALINE PHOSPHATASE 36 IU/L (46-116); ANION GAP 9 (8-16); ASPARTATE AMINO TRANSFERASE 44 U/L (10-37); BILIRUBIN,TOTAL 1.6 MG/DL (0.1-1.0); BLOOD UREA NITROGEN 90 MG/DL (7-18); BUN/CREATININE RATIO 45.9 (5.4-32.0); CALCIUM 8.7 MG/DL (8.5-10.1); CHLORIDE 97 MMOL/L (99-107); CREATININE 1.96 MG/DL (0.60-1.10); GLUCOSE 113 MG/DL (70-104); MAGNESIUM 2.5 MG/DL (1.5-2.4); PHOSPHORUS 3.6 MG/DL (2.3-4.5); POTASSIUM 3.7 MMOL/L (3.5-5.1); SODIUM 132 MMOL/L (135-145); TOTAL CARBON DIOXIDE 26.1 MMOL/L (24-32); TOTAL PROTEIN 6.6 G/DL (6.4-8.2); eGFR 34 ML/MIN
[2019-11-06] MEDS: K and/or MAG REPLACEMENT MC SCH ×2 (07:25→20:00)
[2019-11-06] MEDS: carVEDilol 3.125mg tablet PO SCH ×2 (07:25→20:00)
--- NOTE | 2019-11-06 11:33 | NUR ---
Patient a very difficult stick; 2 RNs attempted IV start to replace field start IV for a total of 4 attempts. Current field start patent, intact, and asymptomatic. Dobutamine gtt infusing per MD orders. Due to possible PICC placement for discharge, patient request to keep field start until plan of care decided.
[2019-11-06] MEDS: furosemide 20 MG/2 ML vial IV SCH ×2 (11:41→19:53)
--- NOTE | 2019-11-06 14:56 | NUR ---
Patient ambulated 300 feet with RN using gait belt & FWW. Per telecommunications field engineer, patient HR maintained 110-120 while walking. Patient tolerated well.
--- NOTE | 2019-11-06 18:00 | NUR ---
Patient in room MED 311. I have received report from Roxanne KRUEGER and had the opportunity to ask questions and assume patient care.
--- NOTE | 2019-11-06 18:15 | NUR ---
Problems reprioritized. Patient report given, questions answered & plan of care reviewed with EVANS Paez.
[2019-11-07] VITALS: BP 90/36
[2019-11-07] MEDS ORDERED: albuterol 2.5 MG/3 ML nebule NEB PRN (01:10)
--- NOTE | 2019-11-07 01:12 | NUR ---
CALLED MD FOR SOB, WHEEZING, NEW NEBMED ORDERS, RT PAGED TO EVAL/TREAT FOR WHEEZING. OXYGEN AT 2LNC
[2019-11-07] MEDS: DOBUTamine-DoBUTrex 500mg/D5W 250 ML IV SCH ×2 (01:56→08:38)
[2019-11-07 02:00] VITALS: BP 110/60
[2019-11-07 04:00] VITALS: BP 94/62
[2019-11-07 06:00] VITALS: BP 99/66
--- NOTE | 2019-11-07 06:30 | NUR ---
Patient in room MED 311. I have received report from Ambar KRUEGER and had the opportunity to ask questions and assume patient care.
--- NOTE | 2019-11-07 06:36 | NUR ---
Problems reprioritized. Patient report given, questions answered & plan of care reviewed with FREDDY KRUEGER.
--- NOTE | 2019-11-07 08:03 | NUR ---
MESSAGE: The patient is stating he has to leave at 900 this morning. His IV was found out on the floor and he is still supposed to be on a Dobutamine drip. He is stating he will leave if he has too. Please advise.
[2019-11-07 08:07] LABS: HEMATOCRIT 31.2 % (42.0-52.0); HEMOGLOBIN 10.6 g/dl (14.0-17.9); MEAN CORPUSCULAR HEMOGLOBIN 31.4 PG (27.0-31.0); MEAN CORPUSCULAR VOLUME 92.3 FL (78-98); MEAN PLATELET VOLUME 10.1 FL (7.4-10.4); PLATELET COUNT 94 X10'3 (140-440); RED BLOOD COUNT 3.38 X10'6 (4.70-6.10); RED CELL DISTRIBUTION WIDTH 14.3 % (11.5-14.5); WHITE BLOOD COUNT 6.2 X10'3 (4.5-11.0)
--- NOTE | 2019-11-07 08:20 | NUR ---
The patient agreed for nurse to place another IV and start the Dobutamine drip again. He was educated on his need to have the drip on and he stated understanding and agreed. He refused any other medications. He refused nurse to assess him fully. He states that he will be "financially ruined" if he does not get to the bank this morning. He stated that he understood that he could from his cardiac and renal status at this time and the need to have the dobutamine drip on to keep his blood pressure up. He stated he would wait for the MD if it does not get "too late'. IV started and dobutamine was turned on again.
[2019-11-07 08:32] LABS: ALANINE AMINOTRANSFERASE 31 U/L (12-78); ALBUMIN 3.2 G/DL (3.4-5.0); ALKALINE PHOSPHATASE 42 IU/L (46-116); ANION GAP 9 (8-16); ASPARTATE AMINO TRANSFERASE 44 U/L (10-37); BILIRUBIN,TOTAL 1.6 MG/DL (0.1-1.0); BLOOD UREA NITROGEN 78 MG/DL (7-18); BUN/CREATININE RATIO 45.3 (5.4-32.0); CALCIUM 8.7 MG/DL (8.5-10.1); CHLORIDE 98 MMOL/L (99-107); CREATININE 1.72 MG/DL (0.60-1.10); GLUCOSE 111 MG/DL (70-104); MAGNESIUM 2.4 MG/DL (1.5-2.4); PHOSPHORUS 3.2 MG/DL (2.3-4.5); SODIUM 132 MMOL/L (135-145); TOTAL CARBON DIOXIDE 24.8 MMOL/L (24-32); TOTAL PROTEIN 6.5 G/DL (6.4-8.2); eGFR 39 ML/MIN
[2019-11-07 08:38] VITALS: BP 88/57
--- NOTE | 2019-11-07 09:22 | NUR ---
I was present with Dr. Bliss when he explained to the patient that him refusing the Dobutamine and leaving AMA could potentially be fatal. The patient stated that he still wants to go home and worry about it himself. We told him we did not think it is safe for him to go home but he said he thinks he is ok and will follow up with Dr. Sarkar himself after he is discharged.
--- NOTE | 2019-11-07 10:34 | NUR ---
10:25 am Patient was seen by Dr Bliss and the pt decided to leave AMA. He signed the form, dressed, IV was removed cath intact, all belongings accounted for and was escorted out to private vehicle in a wheelchair.
== END 2019-11-07 10:15 | disposition left against medical advice (07) | DRG 682 ==
LOC: ER 11:56 → ED HOLD 14:20 → PCU 3S 15:22 → MED 3N 11-04 18:40
PROVIDERS: ADMIT Family Medicine; ATTEND Family Medicine
DX: N17.9 Acute kidney failure, unspecified (principal); I50.23 Acute on chronic systolic (congestive) heart failure; E87.1 Hypo-osmolality and hyponatremia; I13.0 Hypertensive heart and chronic kidney disease with heart failure and stage 1 through stage 4 chronic kidney disease, or unspecified chronic kidney disease; I42.9 Cardiomyopathy, unspecified; D64.9 Anemia, unspecified; E86.0 Dehydration; E87.6 Hypokalemia; I27.21 Secondary pulmonary arterial hypertension; I48.0 Paroxysmal atrial fibrillation; N18.9 Chronic kidney disease, unspecified; Z96.643 Presence of artificial hip joint, bilateral; I34.0 Nonrheumatic mitral (valve) insufficiency; Z53.29 Procedure and treatment not carried out because of patient's decision for other reasons; I35.0 Nonrheumatic aortic (valve) stenosis; Z87.891 Personal history of nicotine dependence; Z95.810 Presence of automatic (implantable) cardiac defibrillator
CPT/HCPCS: 36415; 71045; 80053; 81001; 83605; 83735; 84100; 84145; 85025; 85027; 87040; 87081; 93005; 94640; 94760; 97116; 97161; 97530; 99285; G0378; J0696; J1250; J1940; J7030

== ENCOUNTER 2019-11-08 17:32 | Inpatient (IN) | payer MEDICARE, OTHER ==
[~2019-11-08] VITALS: Ht 170.2 cm; Wt 82.3 kg
[~2019-11-08 17:32] MED LIST changes: -BUME1TAB8 PO; -BUME2TAB7 PO; -CARV-50 PO; +CARV3.122 PO; -CARV6.253 PO; -COR3.125T PO; -LOSA50TA64 PO; -METO5TAB7 PO
[2019-11-08 18:50] LABS: BASOPHILS % (AUTO) 0.6 % (0-1); EOSINOPHILS # (AUTO) 0.1 X10'3 (0-0.9); EOSINOPHILS % (AUTO) 1.1 % (0-6); HEMATOCRIT 32.8 % (42.0-52.0); HEMOGLOBIN 11.2 g/dl (14.0-17.9); LYMPHOCYTES # (AUTO) 0.6 X10'3 (1.1-4.8); LYMPHOCYTES % (AUTO) 8.6 % (21-51); MEAN CORPUSCULAR HEMOGLOBIN 31.6 PG (27.0-31.0); MEAN CORPUSCULAR VOLUME 92.8 FL (78-98); MEAN PLATELET VOLUME 9.9 FL (7.4-10.4); MONOCYTES # (AUTO) 0.9 X10'3 (0-0.9); MONOCYTES % (AUTO) 12.7 % (2-12); NEUTROPHILS # (AUTO) 5.2 X10'3 (1.8-7.7); PLATELET COUNT 100 X10'3 (140-440); RED BLOOD COUNT 3.54 X10'6 (4.70-6.10); RED CELL DISTRIBUTION WIDTH 14.8 % (11.5-14.5); WHITE BLOOD COUNT 6.7 X10'3 (4.5-11.0)
[2019-11-08 19:06] LABS: ALANINE AMINOTRANSFERASE 42 U/L (12-78); ALBUMIN 3.3 G/DL (3.4-5.0); ALKALINE PHOSPHATASE 58 IU/L (46-116); ANION GAP 13 (8-16); ASPARTATE AMINO TRANSFERASE 77 U/L (10-37); BILIRUBIN,TOTAL 2.4 MG/DL (0.1-1.0); BLOOD UREA NITROGEN 98 MG/DL (7-18); BUN/CREATININE RATIO 31.1 (5.4-32.0); CALCIUM 9.3 MG/DL (8.5-10.1); CHLORIDE 90 MMOL/L (99-107); CREATININE 3.15 MG/DL (0.60-1.10); GLUCOSE 91 MG/DL (70-104); POTASSIUM 4.7 MMOL/L (3.5-5.1); SODIUM 125 MMOL/L (135-145); TOTAL CARBON DIOXIDE 22.2 MMOL/L (24-32); TOTAL PROTEIN 6.7 G/DL (6.4-8.2); eGFR 19 ML/MIN
[2019-11-08 19:29] LABS: CLARITY,URINE SLIGHTLY CLOUDY (Clear); COLOR,URINE YELLOW (Yellow); GLUCOSE, URINE NEGATIVE (Neg); KETONES,URINE NEGATIVE (Neg); LEUKOCYTE ESTERASE ,URINE NEGATIVE (Neg); NITRITES, URINE NEGATIVE (Neg); OCCULT BLOOD,URINE MODERATE (Neg); PROTEIN,URINE 30 mg/dl (Neg)
[2019-11-08 19:41] LABS: UA COLLECTION TYPE FOLEY CATH
[2019-11-08 19:43] LABS: BACTERIA,URINE FEW /HPF (Neg); SQUAMOUS EPITHELIAL CELL,UR FEW /LPF (FEW); WBC,URINE 0-4 /HPF (0-4)
[2019-11-08 19:44] LABS: CELLULAR CAST 0-4 /LPF (NEGATIVE); FINE GRANULAR CAST 0-3 /LPF (NEGATIVE)
[2019-11-08 19:46] LABS: AMORPHOUS URATES 1+
[2019-11-08] MEDS ORDERED: aspirin 81mg tab.chew PO ONE (20:40)
[2019-11-08] MEDS ORDERED: normal saline 1000ML IV soln IVB ONE (21:05)
--- NOTE | 2019-11-08 21:08 | NUR ---
PT REQUESTING FOOD; PER DR VALLES, PT NPO PENDING TRANSFER TO UNIT,
--- NOTE | 2019-11-08 21:13 | NUR ---
HOLDING NS 500ML BOLUS, BP IMPROVEMENT, PER DR VALLES. COMMUNICATED TO PRIMARY RN JOSE.
--- NOTE | 2019-11-08 21:38 | NUR ---
Patient resting comfortably in bed. He is updated on POC.
[2019-11-08] MEDS ORDERED: magnesium hydroxide 30ml (MOM) UD suspension PO PRN (22:05)
[2019-11-08] MEDS ORDERED: proCHLORperazine 10 MG/2 ml inj IV PRN (22:05)
[2019-11-08] MEDS ORDERED: acetaminophen 325mg tablet PO PRN ×2 (22:05)
[2019-11-08] MEDS: K, MAG and/or Phos replacement - Verify level? MC SCH (22:05)
[2019-11-08] MEDS ORDERED: morphine 2 MG/ML inj. syringe IV PRN (22:05)
--- NOTE | 2019-11-08 23:00 | NUR ---
Patient in room CICU 2009. I have received report from EVANS Lin and had the opportunity to ask questions and assume patient care.
[2019-11-08] MEDS: DOBUTamine-DoBUTrex 500mg/D5W 250 ML IV SCH (23:03)
[2019-11-09] VITALS (24 sets, daily range): BP systolic 74–105; BP diastolic 38–69
[2019-11-09] MEDS ORDERED: albumin (Human) 5% 250ml 250 ML IV ONE ×2 (00:59→01:00)
[2019-11-09] MEDS ORDERED: NORepinephrine 8mg/ 250ml NS 250 ML IV ONE (00:59)
[2019-11-09] MEDS ORDERED: NORepinephrine 8mg/ 250ml NS 250 ML IV SCH (01:00)
[2019-11-09] MEDS ORDERED: NORepinephrine 8mg/ 250ml NS 250 ML IV PRN (01:05)
[2019-11-09] MEDS: NORepinephrine 8mg/ 250ml NS 250 ML IV PRN ×3 (01:19→19:39)
[2019-11-09] MEDS: furosemide 20 MG/2 ML vial IV SCH ×3 (02:16→19:39)
[2019-11-09 02:35] LABS: BASOPHILS % (AUTO) 0.4 % (0-1); EOSINOPHILS % (AUTO) 0.7 % (0-6); HEMATOCRIT 30.8 % (42.0-52.0); HEMOGLOBIN 10.5 g/dl (14.0-17.9); LYMPHOCYTES # (AUTO) 0.6 X10'3 (1.1-4.8); LYMPHOCYTES % (AUTO) 9.5 % (21-51); MEAN CORPUSCULAR HEMOGLOBIN 31.3 PG (27.0-31.0); MEAN CORPUSCULAR HGB CONC 34.1 g/dL (33.0-36.5); MEAN CORPUSCULAR VOLUME 91.8 FL (78-98); MEAN PLATELET VOLUME 9.7 FL (7.4-10.4); MONOCYTES # (AUTO) 0.7 X10'3 (0-0.9); MONOCYTES % (AUTO) 11.7 % (2-12); NEUTROPHILS # (AUTO) 4.7 X10'3 (1.8-7.7); NEUTROPHILS % (AUTO) 77.7 % (42-75); PLATELET COUNT 99 X10'3 (140-440); RED BLOOD COUNT 3.36 X10'6 (4.70-6.10); RED CELL DISTRIBUTION WIDTH 14.4 % (11.5-14.5); WHITE BLOOD COUNT 6.1 X10'3 (4.5-11.0)
[2019-11-09 02:43] LABS: ALANINE AMINOTRANSFERASE 38 U/L (12-78); ALBUMIN 3.1 G/DL (3.4-5.0); ALKALINE PHOSPHATASE 53 IU/L (46-116); ANION GAP 12 (8-16); ASPARTATE AMINO TRANSFERASE 71 U/L (10-37); BILIRUBIN,TOTAL 2.2 MG/DL (0.1-1.0); BLOOD UREA NITROGEN 102 MG/DL (7-18); BUN/CREATININE RATIO 33.9 (5.4-32.0); CALCIUM 8.7 MG/DL (8.5-10.1); CHLORIDE 93 MMOL/L (99-107); CREATININE 3.01 MG/DL (0.60-1.10); GLUCOSE 120 MG/DL (70-104); MAGNESIUM 2.4 MG/DL (1.5-2.4); PHOSPHORUS 4.9 MG/DL (2.3-4.5); POTASSIUM 4.2 MMOL/L (3.5-5.1); SODIUM 129 MMOL/L (135-145); TOTAL CARBON DIOXIDE 23.9 MMOL/L (24-32); TOTAL PROTEIN 6.2 G/DL (6.4-8.2); TROPONIN I 0.21 NG/ML (0.0-0.05); eGFR 21 ML/MIN
--- NOTE | 2019-11-09 06:24 | NUR ---
Problems reprioritized. Patient report given, questions answered & plan of care reviewed with EVANS Noyola.
[2019-11-09] MEDS: docusate sod 100mg capsule PO SCH ×2 (07:14→19:39)
[2019-11-09] MEDS: heparin, porcine 5000 units/ml vial SQ SCH ×2 (07:15→19:40)
[2019-11-09] MEDS: K, MAG and/or Phos replacement - Verify level? MC SCH ×2 (08:00→09:04)
[2019-11-09] MEDS: carVEDilol 3.125mg tablet PO SCH ×2 (08:00→19:32)
[2019-11-09] MEDS: famotidine 10mg tablet PO SCH (08:00)
[2019-11-09] MEDS ORDERED: BUME1TAB8 PO (13:16)
[2019-11-09 16:34] LABS: MAGNESIUM 2.3 MG/DL (1.5-2.4); PHOSPHORUS 4.4 MG/DL (2.3-4.5); POTASSIUM 3.6 MMOL/L (3.5-5.1)
--- NOTE | 2019-11-09 18:19 | NUR ---
Problems reprioritized. Patient report given to Jaycee, questions answered & plan of care reviewed with .
[2019-11-09] MEDS: sennosides/docusate sodium tablet PO SCH (20:06)
[2019-11-09] MEDS: DOBUTamine-DoBUTrex 500mg/D5W 250 ML IV SCH (20:09)
[2019-11-10] VITALS (26 sets, daily range): BP systolic 78–117; BP diastolic 39–68
[2019-11-10 03:09] LABS: BASOPHILS % (AUTO) 0.3 % (0-1); EOSINOPHILS # (AUTO) 0.1 X10'3 (0-0.9); EOSINOPHILS % (AUTO) 0.8 % (0-6); HEMOGLOBIN 10.9 g/dl (14.0-17.9); LYMPHOCYTES # (AUTO) 0.8 X10'3 (1.1-4.8); LYMPHOCYTES % (AUTO) 10.2 % (21-51); MEAN CORPUSCULAR HEMOGLOBIN 31.3 PG (27.0-31.0); MEAN CORPUSCULAR HGB CONC 34.1 g/dL (33.0-36.5); MEAN CORPUSCULAR VOLUME 91.8 FL (78-98); MEAN PLATELET VOLUME 9.7 FL (7.4-10.4); MONOCYTES # (AUTO) 1.1 X10'3 (0-0.9); MONOCYTES % (AUTO) 14.5 % (2-12); NEUTROPHILS # (AUTO) 5.9 X10'3 (1.8-7.7); NEUTROPHILS % (AUTO) 74.2 % (42-75); PLATELET COUNT 122 X10'3 (140-440); RED BLOOD COUNT 3.49 X10'6 (4.70-6.10); RED CELL DISTRIBUTION WIDTH 14.5 % (11.5-14.5); WHITE BLOOD COUNT 7.9 X10'3 (4.5-11.0)
[2019-11-10 03:22] LABS: ALANINE AMINOTRANSFERASE 42 U/L (12-78); ALBUMIN 3.2 G/DL (3.4-5.0); ALBUMIN/GLOBULIN RATIO 0.9 (1.1-1.5); ALKALINE PHOSPHATASE 51 IU/L (46-116); ANION GAP 12 (8-16); ASPARTATE AMINO TRANSFERASE 63 U/L (10-37); BILIRUBIN,TOTAL 1.9 MG/DL (0.1-1.0); BLOOD UREA NITROGEN 92 MG/DL (7-18); BUN/CREATININE RATIO 42.4 (5.4-32.0); CALCIUM 9.2 MG/DL (8.5-10.1); CHLORIDE 95 MMOL/L (99-107); CREATININE 2.17 MG/DL (0.60-1.10); GLUCOSE 122 MG/DL (70-104); PHOSPHORUS 3.9 MG/DL (2.3-4.5); POTASSIUM 3.1 MMOL/L (3.5-5.1); SODIUM 133 MMOL/L (135-145); TOTAL CARBON DIOXIDE 25.9 MMOL/L (24-32); TOTAL PROTEIN 6.6 G/DL (6.4-8.2); eGFR 30 ML/MIN
[2019-11-10] MEDS ORDERED: potassium Cl 20mEq/100mL bag 100 ML IV PRN (04:25)
[2019-11-10] MEDS ORDERED: potassium Cl 20 mEq SR tablet PO PRN ×3 (04:25→10:50)
[2019-11-10] MEDS: potassium Cl 20 mEq SR tablet PO PRN ×4 (05:02→18:42)
--- NOTE | 2019-11-10 06:37 | NUR ---
Problems reprioritized. Patient report given, questions answered & plan of care reviewed with Valeri KRUEGER.
--- NOTE | 2019-11-10 06:38 | NUR ---
Patient in room CICU 2009. I have received report from Jose Francisco KRUEGER and had the opportunity to ask questions and assume patient care.
[2019-11-10] MEDS: carVEDilol 3.125mg tablet PO SCH ×2 (08:00→20:00)
[2019-11-10] MEDS: K, MAG and/or Phos replacement - Verify level? MC SCH ×2 (08:00→10:50)
[2019-11-10] MEDS: docusate sod 100mg capsule PO SCH ×2 (08:07→20:52)
[2019-11-10] MEDS: furosemide 20 MG/2 ML vial IV SCH (08:07)
[2019-11-10] MEDS: famotidine 10mg tablet PO SCH (08:09)
[2019-11-10] MEDS: heparin, porcine 5000 units/ml vial SQ SCH ×2 (08:09→20:52)
[2019-11-10] MEDS ORDERED: sodium phosphate inj. 15 MMOL in dextrose 5%-water 150 ML IV PRN (10:50)
[2019-11-10] MEDS ORDERED: Neutra Phos packet PO PRN (10:50)
[2019-11-10] MEDS ORDERED: magnesium 4gm in 100ml NS 100 ML IV PRN (10:50)
[2019-11-10] MEDS ORDERED: sodium phosphate inj. 30 MMOL in dextrose 5%-water 250 ML IV PRN (10:50)
[2019-11-10] MEDS ORDERED: magnesium 2GM in 50ml NS 50 ML IV PRN (10:50)
[2019-11-10] MEDS ORDERED: furosemide inj 100 ML IV SCH (10:50)
[2019-11-10] MEDS ORDERED: magnesium Cl slow-release 64mg tablet PO PRN (10:50)
[2019-11-10 11:55] LABS: ALBUMIN 3.2 G/DL (3.4-5.0); ANION GAP 5 (8-16); BLOOD UREA NITROGEN 86 MG/DL (7-18); BUN/CREATININE RATIO 45.7 (5.4-32.0); CALCIUM 9.2 MG/DL (8.5-10.1); CHLORIDE 97 MMOL/L (99-107); CREATININE 1.88 MG/DL (0.60-1.10); GLUCOSE 136 MG/DL (70-104); MAGNESIUM 1.9 MG/DL (1.5-2.4); PHOSPHORUS 3.3 MG/DL (2.3-4.5); POTASSIUM 3.3 MMOL/L (3.5-5.1); SODIUM 133 MMOL/L (135-145); TOTAL CARBON DIOXIDE 30.6 MMOL/L (24-32); eGFR 35 ML/MIN
[2019-11-10] MEDS: furosemide inj 100 MG in normal saline 100ml IV soln 90 ML IV SCH ×3 (12:15→22:15)
[2019-11-10] MEDS: NORepinephrine 8mg/ 250ml NS 250 ML IV PRN (13:07)
[2019-11-10] MEDS: DOBUTamine-DoBUTrex 500mg/D5W 250 ML IV SCH (18:11)
--- NOTE | 2019-11-10 18:30 | NUR ---
Problems reprioritized. Patient report given, questions answered & plan of care reviewed with Jose Francisco KRUEGER.
--- NOTE | 2019-11-10 18:31 | NUR ---
Patient in room CICU 2009. I have received report from Roxanne KRUEGER and had the opportunity to ask questions and assume patient care.
--- NOTE | 2019-11-10 20:00 | NUR ---
at start of shift, pt HR was 140-160's. he was on dobutamine at 10, and levophed at 0.5. he insisted that he was not feeling symptomatic at all. denies CP, SOB, dizziness, lightheadedness. he was sitting in chair and eating dinner. BP was is 80's systolic. dobutamine was turned down to 8, and by 1999 was titrated down to 4. pt HR down to 110-120's. BP 90-100 systolic. levo at .45. continue to monitor and wean as tolerated.
[2019-11-10] MEDS: sennosides/docusate sodium tablet PO SCH (20:51)
[2019-11-10 21:29] LABS: ALBUMIN 3.1 G/DL (3.4-5.0); ANION GAP 6 (8-16); BLOOD UREA NITROGEN 89 MG/DL (7-18); BUN/CREATININE RATIO 45.6 (5.4-32.0); CALCIUM 8.9 MG/DL (8.5-10.1); CHLORIDE 99 MMOL/L (99-107); CREATININE 1.95 MG/DL (0.60-1.10); GLUCOSE 141 MG/DL (70-104); MAGNESIUM 1.7 MG/DL (1.5-2.4); PHOSPHORUS 3.2 MG/DL (2.3-4.5); POTASSIUM 4.1 MMOL/L (3.5-5.1); SODIUM 135 MMOL/L (135-145); eGFR 34 ML/MIN
[2019-11-11] VITALS (22 sets, daily range): BP systolic 83–103; BP diastolic 35–63
[2019-11-11 01:47] LABS: BASOPHILS # (AUTO) 0.1 X10'3 (0-0.2); BASOPHILS % (AUTO) 0.7 % (0-1); EOSINOPHILS # (AUTO) 0.1 X10'3 (0-0.9); EOSINOPHILS % (AUTO) 0.7 % (0-6); HEMATOCRIT 33.2 % (42.0-52.0); HEMOGLOBIN 11.5 g/dl (14.0-17.9); LYMPHOCYTES # (AUTO) 1.1 X10'3 (1.1-4.8); LYMPHOCYTES % (AUTO) 13.2 % (21-51); MEAN CORPUSCULAR HEMOGLOBIN 31.4 PG (27.0-31.0); MEAN CORPUSCULAR HGB CONC 34.7 g/dL (33.0-36.5); MEAN CORPUSCULAR VOLUME 90.7 FL (78-98); MEAN PLATELET VOLUME 9.5 FL (7.4-10.4); MONOCYTES # (AUTO) 1.3 X10'3 (0-0.9); NEUTROPHILS # (AUTO) 5.8 X10'3 (1.8-7.7); NEUTROPHILS % (AUTO) 69.4 % (42-75); PLATELET COUNT 139 X10'3 (140-440); RED BLOOD COUNT 3.66 X10'6 (4.70-6.10); RED CELL DISTRIBUTION WIDTH 14.7 % (11.5-14.5); WHITE BLOOD COUNT 8.3 X10'3 (4.5-11.0)
[2019-11-11 01:57] LABS: ALBUMIN 3.3 G/DL (3.4-5.0); ANION GAP 7 (8-16); BILIRUBIN,TOTAL 1.6 MG/DL (0.1-1.0); BLOOD UREA NITROGEN 85 MG/DL (7-18); BUN/CREATININE RATIO 47.8 (5.4-32.0); CALCIUM 9.1 MG/DL (8.5-10.1); CHLORIDE 99 MMOL/L (99-107); CREATININE 1.78 MG/DL (0.60-1.10); GLUCOSE 129 MG/DL (70-104); MAGNESIUM 1.7 MG/DL (1.5-2.4); PHOSPHORUS 3.1 MG/DL (2.3-4.5); POTASSIUM 3.3 MMOL/L (3.5-5.1); SODIUM 136 MMOL/L (135-145); TOTAL CARBON DIOXIDE 30.2 MMOL/L (24-32); TOTAL PROTEIN 6.6 G/DL (6.4-8.2); eGFR 38 ML/MIN
[2019-11-11 01:58] LABS: ALANINE AMINOTRANSFERASE 41 U/L (12-78); ALKALINE PHOSPHATASE 55 IU/L (46-116); ASPARTATE AMINO TRANSFERASE 55 U/L (10-37)
[2019-11-11] MEDS: potassium Cl 20 mEq SR tablet PO PRN ×3 (03:09→10:03)
[2019-11-11] MEDS: HYDROcodone/acetaminophen 5mg/325mg tablet PO PRN (03:09)
--- NOTE | 2019-11-11 03:30 | NUR ---
refusing to use bed. only wishing to stay in recliner. educated about risks for skin breakdown, but does not care. encouraged to stand occasionally to relieve pressure to coccyx, and so far has been accommodating with standing at least every few hours.
[2019-11-11] MEDS: NORepinephrine 8mg/ 250ml NS 250 ML IV PRN ×3 (05:19→20:14)
--- NOTE | 2019-11-11 06:28 | NUR ---
Problems reprioritized. Patient report given, questions answered & plan of care reviewed with Cadence KRUEGER.
--- NOTE | 2019-11-11 06:29 | NUR ---
Patient in room CICU 2009. I have received report from Jose Francisco KRUEGER and had the opportunity to ask questions and assume patient care.
[2019-11-11] MEDS: furosemide inj 100 MG in normal saline 100ml IV soln 90 ML IV SCH ×3 (07:18→18:15)
[2019-11-11] MEDS: famotidine 10mg tablet PO SCH (08:00)
[2019-11-11] MEDS: K, MAG and/or Phos replacement - Verify level? MC SCH ×2 (08:00)
[2019-11-11] MEDS: carVEDilol 3.125mg tablet PO SCH ×2 (08:00→20:12)
[2019-11-11] MEDS: docusate sod 100mg capsule PO SCH ×2 (09:33→20:12)
[2019-11-11] MEDS: heparin, porcine 5000 units/ml vial SQ SCH ×2 (09:34→20:00)
[2019-11-11 09:46] LABS: ALBUMIN 3.1 G/DL (3.4-5.0); ANION GAP 9 (8-16); BLOOD UREA NITROGEN 79 MG/DL (7-18); BUN/CREATININE RATIO 50.3 (5.4-32.0); CHLORIDE 99 MMOL/L (99-107); CREATININE 1.57 MG/DL (0.60-1.10); GLUCOSE 119 MG/DL (70-104); MAGNESIUM 1.5 MG/DL (1.5-2.4); PHOSPHORUS 2.9 MG/DL (2.3-4.5); SODIUM 138 MMOL/L (135-145); TOTAL CARBON DIOXIDE 29.8 MMOL/L (24-32); eGFR 44 ML/MIN
[2019-11-11 09:55] LABS: POTASSIUM 2.9 MMOL/L (3.5-5.1)
--- NOTE | 2019-11-11 11:02 | NUR ---
pt's labs were drawn at the same time pt receiving PO 20 meq replacement potassium. 20 minutes later pt had a critical K at 2.9. gave pt another 20 meq potassium and will continue replacement at 40meq potassium per protocol.
[2019-11-11 18:09] LABS: CLARITY,URINE CLOUDY (Clear); COLOR,URINE RED (Yellow); GLUCOSE, URINE NEGATIVE (Neg); KETONES,URINE NEGATIVE (Neg); LEUKOCYTE ESTERASE ,URINE TRACE (Neg); NITRITES, URINE NEGATIVE (Neg); OCCULT BLOOD,URINE LARGE (Neg); PROTEIN,URINE NEGATIVE (Neg); UROBILINOGEN,URINE 0.2 E.U/dL (0.2-1.0)
[2019-11-11 18:11] LABS: UA COLLECTION TYPE CLN CATCH MIDSTREAM
[2019-11-11 18:25] LABS: BACTERIA,URINE NONE SEEN /HPF (Neg); MUCUS STRANDS FEW /LPF (Neg); RBC,URINE TNTC /HPF (0-2); SQUAMOUS EPITHELIAL CELL,UR FEW /LPF (FEW); WBC,URINE 0-4 /HPF (0-4)
[2019-11-11 18:26] LABS: HYALINE CASTS 0-3 /LPF (NEGATIVE)
--- NOTE | 2019-11-11 18:40 | NUR ---
Problems reprioritized. Patient report given, questions answered & plan of care reviewed with Cecil KREUGER.
[2019-11-11] MEDS: sennosides/docusate sodium tablet PO SCH (20:12)
[2019-11-11] MEDS: DOBUTamine-DoBUTrex 500mg/D5W 250 ML IV SCH (20:13)
--- NOTE | 2019-11-11 20:30 | NUR ---
PATIENT REFUSED HEPARIN SUBCU... HIS REASINING WAS BASED OFF OF A BAD EXPERIENCE WITH ANOTHER MED. I EXPLAINED THE BENEFITS OF THE MED. PATIENT STILL REFUSED IN THE END
[2019-11-11 20:45] LABS: ALBUMIN 3.2 G/DL (3.4-5.0); ANION GAP 7 (8-16); BLOOD UREA NITROGEN 76 MG/DL (7-18); BUN/CREATININE RATIO 45.2 (5.4-32.0); CALCIUM 8.9 MG/DL (8.5-10.1); CHLORIDE 100 MMOL/L (99-107); CREATININE 1.68 MG/DL (0.60-1.10); GLUCOSE 135 MG/DL (70-104); SODIUM 137 MMOL/L (135-145); TOTAL CARBON DIOXIDE 29.6 MMOL/L (24-32); eGFR 40 ML/MIN
--- NOTE | 2019-11-11 21:45 | NUR ---
patients HR 120-160 bpm, afib, many PVC's, pacer appears to be striking all over. PABLITO Welch was on the unit. per order decrease the dobutamine to 3 ug/kg/min. Patient drops BP with increased HR, levophed gtt increased per order, potassium level was 4.0 at 20:20. perhaps the pacer needs interrogating? Consulted irish moss operatorEVANS Major. Addendum: 11/12/19 at 0207 by Cecil Hines RN addendum , rhythm strips in bedside chart
[2019-11-12] VITALS (23 sets, daily range): BP systolic 83–107; BP diastolic 45–69
[2019-11-12] MEDS: furosemide inj 100 MG in normal saline 100ml IV soln 90 ML IV SCH ×6 (00:40→19:44)
[2019-11-12] MEDS: HYDROcodone/acetaminophen 5mg/325mg tablet PO PRN (02:33)
[2019-11-12 03:20] LABS: BASOPHILS # (AUTO) 0.1 X10'3 (0-0.2); EOSINOPHILS # (AUTO) 0.1 X10'3 (0-0.9); EOSINOPHILS % (AUTO) 1.4 % (0-6); HEMATOCRIT 33.7 % (42.0-52.0); HEMOGLOBIN 11.4 g/dl (14.0-17.9); LYMPHOCYTES # (AUTO) 0.9 X10'3 (1.1-4.8); LYMPHOCYTES % (AUTO) 10.4 % (21-51); MEAN CORPUSCULAR HEMOGLOBIN 31.3 PG (27.0-31.0); MEAN CORPUSCULAR HGB CONC 33.9 g/dL (33.0-36.5); MEAN CORPUSCULAR VOLUME 92.4 FL (78-98); MEAN PLATELET VOLUME 9.8 FL (7.4-10.4); MONOCYTES # (AUTO) 1.1 X10'3 (0-0.9); MONOCYTES % (AUTO) 12.6 % (2-12); NEUTROPHILS # (AUTO) 6.3 X10'3 (1.8-7.7); NEUTROPHILS % (AUTO) 74.6 % (42-75); PLATELET COUNT 128 X10'3 (140-440); RED BLOOD COUNT 3.65 X10'6 (4.70-6.10); RED CELL DISTRIBUTION WIDTH 15.2 % (11.5-14.5); WHITE BLOOD COUNT 8.4 X10'3 (4.5-11.0)
[2019-11-12 03:28] LABS: ALANINE AMINOTRANSFERASE 37 U/L (12-78); ALBUMIN 3.1 G/DL (3.4-5.0); ALBUMIN/GLOBULIN RATIO 0.9 (1.1-1.5); ALKALINE PHOSPHATASE 52 IU/L (46-116); ANION GAP 8 (8-16); ASPARTATE AMINO TRANSFERASE 47 U/L (10-37); BILIRUBIN,TOTAL 1.6 MG/DL (0.1-1.0); BLOOD UREA NITROGEN 75 MG/DL (7-18); BUN/CREATININE RATIO 44.9 (5.4-32.0); CALCIUM 8.8 MG/DL (8.5-10.1); CHLORIDE 101 MMOL/L (99-107); CREATININE 1.67 MG/DL (0.60-1.10); GLUCOSE 131 MG/DL (70-104); MAGNESIUM 1.6 MG/DL (1.5-2.4); PHOSPHORUS 2.6 MG/DL (2.3-4.5); POTASSIUM 3.8 MMOL/L (3.5-5.1); SODIUM 138 MMOL/L (135-145); TOTAL CARBON DIOXIDE 28.6 MMOL/L (24-32); TOTAL PROTEIN 6.5 G/DL (6.4-8.2); eGFR 41 ML/MIN
--- NOTE | 2019-11-12 04:00 | NUR ---
PATIENT C/O NAUSEA FROM THE [facility]. I OFFERED TO GET HIM SOMETHING/MED FOR n/v - HE DID NOT WANT ANY. JUST FOR ME TO PASS TO NEXT RN THAT HE GETS NAUSEATED WITH [facility]CO. U/O HAS BEEN LOW TO BORDERLINE. INCREASED THE LASIX GTT PER ORDER TO 20 MG/HR (MAX 160 MH/HR PER PHARMACY)
[2019-11-12] MEDS: NORepinephrine 8mg/ 250ml NS 250 ML IV PRN ×3 (05:47→20:37)
[2019-11-12] MEDS: carVEDilol 3.125mg tablet PO SCH ×2 (08:00→20:37)
[2019-11-12] MEDS: K, MAG and/or Phos replacement - Verify level? MC SCH ×2 (08:00)
[2019-11-12] MEDS: famotidine 10mg tablet PO SCH (08:07)
[2019-11-12] MEDS: docusate sod 100mg capsule PO SCH ×2 (08:07→20:00)
[2019-11-12] MEDS: heparin, porcine 5000 units/ml vial SQ SCH ×2 (08:08→20:36)
[2019-11-12 08:36] LABS: ALBUMIN 3.2 G/DL (3.4-5.0); ANION GAP 6 (8-16); BLOOD UREA NITROGEN 77 MG/DL (7-18); BUN/CREATININE RATIO 46.4 (5.4-32.0); CALCIUM 8.9 MG/DL (8.5-10.1); CHLORIDE 99 MMOL/L (99-107); CREATININE 1.66 MG/DL (0.60-1.10); GLUCOSE 156 MG/DL (70-104); MAGNESIUM 1.5 MG/DL (1.5-2.4); PHOSPHORUS 2.9 MG/DL (2.3-4.5); POTASSIUM 3.4 MMOL/L (3.5-5.1); SODIUM 136 MMOL/L (135-145); TOTAL CARBON DIOXIDE 30.8 MMOL/L (24-32); eGFR 41 ML/MIN
[2019-11-12] MEDS: potassium Cl 20 mEq SR tablet PO PRN ×3 (08:47→17:41)
[2019-11-12 14:37] LABS: ALBUMIN 3.1 G/DL (3.4-5.0); ANION GAP 8 (8-16); BLOOD UREA NITROGEN 79 MG/DL (7-18); BUN/CREATININE RATIO 43.9 (5.4-32.0); CALCIUM 8.9 MG/DL (8.5-10.1); CHLORIDE 100 MMOL/L (99-107); GLUCOSE 167 MG/DL (70-104); MAGNESIUM 1.5 MG/DL (1.5-2.4); PHOSPHORUS 2.9 MG/DL (2.3-4.5); POTASSIUM 3.9 MMOL/L (3.5-5.1); SODIUM 137 MMOL/L (135-145); TOTAL CARBON DIOXIDE 28.9 MMOL/L (24-32); eGFR 37 ML/MIN
--- NOTE | 2019-11-12 16:00 | NUR ---
Patient's HR increasing to the 130s-150s with more frequent PVCs; Dr. Paige notified. No new orders at this time.
--- NOTE | 2019-11-12 18:27 | NUR ---
Problems reprioritized. Patient report given, questions answered & plan of care reviewed with Adele KRUEGER.
--- NOTE | 2019-11-12 18:30 | NUR ---
Patient in room CICU 2009. I have received report from abdiaziz donovan and had the opportunity to ask questions and assume patient care.
[2019-11-12] MEDS: DOBUTamine-DoBUTrex 500mg/D5W 250 ML IV SCH (19:48)
[2019-11-12] MEDS: sennosides/docusate sodium tablet PO SCH (21:00)
[2019-11-12 21:11] LABS: ALBUMIN 3.3 G/DL (3.4-5.0); ANION GAP 8 (8-16); BLOOD UREA NITROGEN 82 MG/DL (7-18); BUN/CREATININE RATIO 42.3 (5.4-32.0); CALCIUM 9.1 MG/DL (8.5-10.1); CHLORIDE 100 MMOL/L (99-107); CREATININE 1.94 MG/DL (0.60-1.10); GLUCOSE 135 MG/DL (70-104); MAGNESIUM 1.6 MG/DL (1.5-2.4); PHOSPHORUS 3.1 MG/DL (2.3-4.5); POTASSIUM 4.2 MMOL/L (3.5-5.1); SODIUM 136 MMOL/L (135-145); TOTAL CARBON DIOXIDE 28.3 MMOL/L (24-32); eGFR 34 ML/MIN
[2019-11-13] VITALS (19 sets, daily range): BP systolic 79–109; BP diastolic 38–60
[2019-11-13 03:37] LABS: ALANINE AMINOTRANSFERASE 46 U/L (12-78); ALBUMIN 3.1 G/DL (3.4-5.0); ALBUMIN/GLOBULIN RATIO 0.9 (1.1-1.5); ALKALINE PHOSPHATASE 56 IU/L (46-116); ANION GAP 8 (8-16); ASPARTATE AMINO TRANSFERASE 59 U/L (10-37); BILIRUBIN,TOTAL 1.9 MG/DL (0.1-1.0); BLOOD UREA NITROGEN 80 MG/DL (7-18); BUN/CREATININE RATIO 38.6 (5.4-32.0); CALCIUM 8.9 MG/DL (8.5-10.1); CHLORIDE 100 MMOL/L (99-107); CREATININE 2.07 MG/DL (0.60-1.10); GLUCOSE 107 MG/DL (70-104); MAGNESIUM 1.6 MG/DL (1.5-2.4); PHOSPHORUS 3.1 MG/DL (2.3-4.5); POTASSIUM 4.1 MMOL/L (3.5-5.1); SODIUM 136 MMOL/L (135-145); TOTAL CARBON DIOXIDE 27.7 MMOL/L (24-32); TOTAL PROTEIN 6.4 G/DL (6.4-8.2); eGFR 32 ML/MIN
[2019-11-13] MEDS: DOBUTamine-DoBUTrex 500mg/D5W 250 ML IV SCH (04:31)
[2019-11-13 05:48] LABS: BASOPHILS # (AUTO) 0.1 X10'3 (0-0.2); BASOPHILS % (AUTO) 0.7 % (0-1); EOSINOPHILS # (AUTO) 0.1 X10'3 (0-0.9); EOSINOPHILS % (AUTO) 1.3 % (0-6); HEMATOCRIT 33.8 % (42.0-52.0); HEMOGLOBIN 11.5 g/dl (14.0-17.9); LYMPHOCYTES # (AUTO) 1.2 X10'3 (1.1-4.8); LYMPHOCYTES % (AUTO) 14.2 % (21-51); MEAN CORPUSCULAR HEMOGLOBIN 31.5 PG (27.0-31.0); MEAN CORPUSCULAR HGB CONC 33.9 g/dL (33.0-36.5); MEAN CORPUSCULAR VOLUME 92.8 FL (78-98); MEAN PLATELET VOLUME 10.6 FL (7.4-10.4); MONOCYTES # (AUTO) 1.2 X10'3 (0-0.9); MONOCYTES % (AUTO) 14.1 % (2-12); NEUTROPHILS # (AUTO) 5.8 X10'3 (1.8-7.7); NEUTROPHILS % (AUTO) 69.7 % (42-75); PLATELET COUNT 122 X10'3 (140-440); RED BLOOD COUNT 3.65 X10'6 (4.70-6.10); WHITE BLOOD COUNT 8.2 X10'3 (4.5-11.0)
--- NOTE | 2019-11-13 06:15 | NUR ---
Patient in room CICU 2009. I have received report from EVANS MART and had the opportunity to ask questions and assume patient care.
[2019-11-13 06:49] LABS: LARGE PLATELETS FEW; PLATELET ESTIMATE DECREASED
[2019-11-13] MEDS: carVEDilol 3.125mg tablet PO SCH (07:48)
[2019-11-13] MEDS: docusate sod 100mg capsule PO SCH (07:48)
[2019-11-13] MEDS: famotidine 10mg tablet PO SCH (07:49)
[2019-11-13] MEDS: heparin, porcine 5000 units/ml vial SQ SCH (07:52)
[2019-11-13] MEDS: K, MAG and/or Phos replacement - Verify level? MC SCH ×2 (08:00)
[2019-11-13 09:34] LABS: ANION GAP 10 (8-16); BLOOD UREA NITROGEN 78 MG/DL (7-18); BUN/CREATININE RATIO 35.8 (5.4-32.0); CALCIUM 8.7 MG/DL (8.5-10.1); CHLORIDE 99 MMOL/L (99-107); CREATININE 2.18 MG/DL (0.60-1.10); GLUCOSE 171 MG/DL (70-104); MAGNESIUM 1.6 MG/DL (1.5-2.4); PHOSPHORUS 3.3 MG/DL (2.3-4.5); POTASSIUM 4.1 MMOL/L (3.5-5.1); SODIUM 135 MMOL/L (135-145); TOTAL CARBON DIOXIDE 25.7 MMOL/L (24-32); eGFR 30 ML/MIN
--- NOTE | 2019-11-13 10:17 | NUR ---
DISCUSSED BP 82/47 WITH ROSALVA KEYS RN. SHE INCREASED LEVO GTT TO 3MCG/KG/MIN+40.14CC/HOUR.
--- NOTE | 2019-11-13 11:52 | NUR ---
Initial: Pt admit w/ MAURA, CHF EF 20%, cardiorenal syndrome, BLE +4 severe pitting edema w/ weeping BLE blisters present per MD. Pending transfer to [facility] for [facility] per MD note. Pt PO 50-75% avg heart healthy/1.2L fluid-restricted diet. Moderate BM 11/12. Would benefit from ONS if not transferred today. Will continue to monitor for additional protein needs this admit. Rec: 1. continue heart healthy/1.2L fluid-restricted diet per MD 2. monitor for ONS needs if not d/c today 3. bowel care as needed 4. weekly wts Addendum: 11/13/19 at [address] Amended: Links added.
[2019-11-13] MEDS ORDERED: furosemide inj 100 MG in normal saline 100ml IV soln 90 ML IV SCH (12:15)
[2019-11-13] MEDS: NORepinephrine 8mg/ 250ml NS 250 ML IV PRN (13:17)
--- NOTE | 2019-11-13 13:41 | NUR ---
DISCUSSED BP 79/55 WITH EVANS PRIEST. SHE TITRATED LEVO TO 0.05 MCG/KG/MIN.
--- NOTE | 2019-11-13 14:40 | NUR ---
had called report to [facility] [phone] at 1030. transport via [place] with [facility] to [facility]. jesse burkett.
== END 2019-11-13 15:07 | disposition short-term general hospital (02) | DRG 682 ==
LOC: ER 17:33 → CICU 2S 23:59 → CMPBEDREQ 11-09 00:10
PROC: 02HV33Z Insertion of Infusion Device into Superior Vena Cava, Percutaneous Approach (ICD-10-PCS; principal; 2019-11-08)
DX: N17.9 Acute kidney failure, unspecified (principal); I50.23 Acute on chronic systolic (congestive) heart failure; I13.0 Hypertensive heart and chronic kidney disease with heart failure and stage 1 through stage 4 chronic kidney disease, or unspecified chronic kidney disease; E87.1 Hypo-osmolality and hyponatremia; E87.2 Acidosis; I42.9 Cardiomyopathy, unspecified; N18.9 Chronic kidney disease, unspecified; M19.90 Unspecified osteoarthritis, unspecified site; R33.9 Retention of urine, unspecified; Z96.643 Presence of artificial hip joint, bilateral; I08.0 Rheumatic disorders of both mitral and aortic valves; I48.0 Paroxysmal atrial fibrillation; Z87.891 Personal history of nicotine dependence; I25.2 Old myocardial infarction; Z95.810 Presence of automatic (implantable) cardiac defibrillator; Z88.8 Allergy status to other drugs, medicaments and biological substances; Z79.899 Other long term (current) drug therapy
CPT/HCPCS: 36415; 36556; 71045; 80048; 80053; 80069; 81001; 83735; 83880; 84100; 84132; 84484; 85025; 87081; 87088; 93005; 97110; 97116; 97161; 97530; 99285; G0378; J0780; J1250; J1644; J1940; J3480; P9045